=== PATIENT | female | born 1945 | race Hispanic/Latino ===

== ENCOUNTER 2017-08-23 06:35 | Day surgery (SDC) | payer MEDICARE, OTHER ==
[~2017-08-23 06:35] MED LIST: ANCEF/STERILE WATER 2 GM/20 ML 2 GM/20 ML SYRINGE IV NR; NACL 0.9% 1000 ML 1,000 ML IV SCH
[2017-08-23] MEDS ORDERED: NACL 0.9% 500 ML 500 ML IV SCH (07:00)
[2017-08-23 07:28] LABS: Hemoglobin 15.1 gm/dl (10.1-14.3); Mean Corpuscular HGB Conc 34 % (30-34); Mean Corpuscular Hemoglobin 30 pg (28-32); Mean Corpuscular Volume 89 fl (79-97); Platelet Count 169 K/mm3 (140-440); Red Blood Count 5.04 M/mm3 (3.65-5.03); Red Cell Distribution Width 13.5 % (13.2-15.2)
[2017-08-23 07:41] LABS: INR 0.96 (0.87-1.13); Partial Thromboplastin Time 29.6 Sec. (24.2-36.6)
[2017-08-23 07:45] LABS: BUN/Creatinine Ratio 18; Blood Urea Nitrogen 14 mg/dL (7-17); Calcium 9.5 mg/dL (8.4-10.2); Hemolysis Index 27
[2017-08-23] MEDS ORDERED: HEPARIN 10,000 UNITS/10 ML ONE (08:27)
[2017-08-23] MEDS ORDERED: HEPARIN/NS 5000 UNIT/500ML(CATH LAB) 1,500 ML IR ONE (08:27)
[2017-08-23] MEDS ORDERED: XYLOCAINE 2% INFILTRATI ONE (08:30)
[2017-08-23] MEDS ORDERED: ANCEF/STERILE WATER 2 GM/20 ML 2 GM/20 ML SYRINGE IV ONE (08:42)
[2017-08-23] MEDS ORDERED: CALAN ONE (09:45)
[2017-08-23] MEDS ORDERED: NITROGLYCERIN SYRINGE 3 ML ONE (09:45)
[2017-08-23] MEDS: VERSED ONE ×4 (10:00→10:40)
[2017-08-23] MEDS: SUBLIMAZE ONE ×4 (10:01→10:40)
[2017-08-23] MEDS: HEPARIN 10,000 UNITS/10 ML ONE ×3 (10:10→10:51)
[2017-08-23] MEDS ORDERED: SUBLIMAZE ONE (11:05)
[2017-08-23] MEDS ORDERED: VERSED ONE (11:05)
[2017-08-23] MEDS ORDERED: NACL 0.9% 500 ML 500 ML ONE (11:15)
--- NOTE | 2017-08-23 11:49 | Post Operative Note ---
Pre-op diagnosis: PVD with claudication, in-stent restenosis right femoropopliteal artery Post-op diagnosis: same Findings: Long segment of in-stent restenosis with subtotal occlusion of the entire femoral-popliteal stented segment and the popliteal segment below the stent excessively treated with directional atherectomy and angioplasty followed by drug coated balloon angioplasty with complete resolution of preoperative stenosis and dramatic improvement of blood flow to the right foot Procedure: Right femoral-popliteal artery atherectomy with angioplasty using drug coated balloon #2 duplex guided cannulation right posterior tibial artery Anesthesia: other (moderate sedation: Start time: 1001- end time: 11:30 total sedation time 89 minutes) Surgeon: DARRYN BARRERA Estimated blood loss: minimal Pathology: list (atheroma and neointimal hyperplasia collected by the atherectomy device) Specimen disposition: discarded Condition: stable Disposition: same day
--- NOTE | 2017-08-23 11:56 | Short Stay Summary ---
Short Stay Documentation Date of service: 08/23/17 Narrative H&P: Admitted to the [facility] for outpatient revascularization of her right leg - History H&P: obtained from office - Allergies and Medications Current Medications: Allergies No Known Allergies Allergy (Verified 08/23/17 06:55) Home Medications Medication Instructions Recorded Confirmed Last Taken Type Apixaban [Eliquis] 5 mg PO BID 08/23/17 08/23/17 08/20/17 History 5mg Ipratropium/Albuterol Sulfate 1 - 2 puff INHALATION PRN PRN 08/23/17 08/23/17 History [Combivent Respimat] Metoprolol [Lopressor TAB] 50 mg PO BID 08/23/17 08/23/17 08/23/17 04:30 History 50mg Multi-Day Plus Minerals Tablet 1 tab PO DAILY 08/23/17 08/23/17 08/22/17 History 1 tab Pitavastatin Calcium [LiVALO] 4 mg PO DAILY 08/23/17 08/23/17 08/22/17 History 4mg Potassium Bicarbonate/Cit AC 10 meq PO DAILY 08/23/17 08/23/17 08/22/17 History [Effer-K 10 mEq] 10meq amLODIPine [Norvasc] 5 mg PO DAILY 08/23/17 08/23/17 08/23/17 04:30 History 5mg Active Medications Cefazolin Sodium (Ancef/Sterile Water 2 Gm/20 Ml) 2 gm in 20 mls @ 80 mls/hr IV PREOP NR; Protocol Stop: 08/23/17 23:59 Sodium Chloride (Nacl 0.9% 500 Ml) 500 mls @ 50 mls/hr IV DIRECT CASANDRA Last Admin: 08/23/17 08:25 Dose: 50 mls/hr - Brief post op/procedure progress note Date of procedure: 08/23/17 Procedure: Pre-op diagnosis: PVD with claudication, in-stent restenosis right femoropopliteal artery Post-op diagnosis: same Findings: Long segment of in-stent restenosis with subtotal occlusion of the entire femoral-popliteal stented segment and the popliteal segment below the stent excessively treated with directional atherectomy and angioplasty followed by drug coated balloon angioplasty with complete resolution of preoperative stenosis and dramatic improvement of blood flow to the right foot Procedure: Right femoral-popliteal artery atherectomy with angioplasty using drug coated balloon #2 duplex guided cannulation right posterior tibial artery Anesthesia: other (moderate sedation: Start time: 1001- end time: 11:30 total sedation time 89 minutes) Surgeon: DARRYN BARRERA Estimated blood loss: minimal Pathology: list (atheroma and neointimal hyperplasia collected by the atherectomy device) Specimen disposition: discarded Condition: stable Disposition: same day - Hospital course Hospital course: Benign with return of palpable pulses in the right foot - Disposition Condition at discharge: Stable Disposition: [id number] TO HOME OR SELFCARE - Discharge Diagnoses (1) Atherosclerotic PVD with intermittent claudication Status: Chronic Comment: Successfully treated with revascularization atherectomy and angioplasty (2) Stenosis involving cardiovascular device Status: Chronic Qualifiers: CV device type detail: peripheral vascular stent Encounter type: subsequent encounter Qualified Code(s): T82.856D - Stenosis of peripheral vascular stent, subsequent encounter (3) Atrial fibrillation and flutter Status: Chronic Comment: Resume Effient and appropriate anticoagulation per cardiology this evening (4) Hypertension Status: Chronic Qualifiers: Hypertension type: essential hypertension Qualified Code(s): I10 - Essential (primary) hypertension (5) Hyperlipemia Status: Chronic Qualifiers: Hyperlipidemia type: unspecified Qualified Code(s): E78.5 - Hyperlipidemia , unspecified Comment: Continue statins Short Stay Discharge Plan Activity: advance as tolerated Weight Bearing Status: Full Weight Bearing Diet: low fat, low cholesterol Wound: keep clean and dry Special Instructions: no heavy lifting Follow up with: MARCY WADE MD [Primary Care Provider] - 7 Days DARRYN BARRERA MD [Staff Physician] - 7 Days JULIA TIMMONS MD [Staff Physician] - 7 Days Prescriptions: HYDROcodone/APAP 5-325 [Pet[place] 5/325] 1 each PO Q4HR PRN #10 tablet PRN Reason: Pain
--- NOTE | 2017-08-23 12:25 | Operative Report ---
Operative Report Operative Report: Date of procedure: 08/23/2017 Pre-operative diagnosis: Peripheral vascular disease with claudication due to in stent restenosis right femoropopliteal artery Post-operative diagnosis: Same Procedure name(s): #1 right femoral popliteal artery atherectomy with balloon angioplasty and treatment with drug coated balloon #2 duplex guided cannulation right posterior tibial artery Surgeon: Marco Tapia MD Pharmacy Coordinator: None Anesthesia: Moderate sedation total sedation time 89 minutes. Start time: 1001 End time: 1130 EBL: Minimal Specimen(s): Plaque and neointimal hyperplasia collected via atherectomy device , discarded Complications: None Findings: Severe long segment preocclusive stenosis of the entire stented segment of the femoral-popliteal artery. An additional area of the above-knee popliteal artery also involved with occlusive disease successfully crossed from a retrograde approach and treated with resolution of the stenosis and improved blood flow to her foot Procedure: Patient in the supine position the right leg in its entirety and both groins were prepped and draped using standard sterile technique. I chose a posterior tibial access site because of the presence of an aortobifemoral bypass graft and my reluctance to the contralateral groin to the infectious risk. A previous angiogram had suggested the cannulation of the proximal stent would be very difficult from this approach. I then identified the posterior tibial artery at the ankle using the ultrasound machine and under real-time imaging and through anesthetized skin and micropuncture technique was used to access that vessel and advance a microwire. A 5/6 [employer] glide sheath was then advanced over the wire into the posterior tibial artery using Seldinger technique. Intraluminal positioning was confirmed. IV 18 wire was then passed retrograde up the leg and easily traversed the entire stent into the aortobifemoral graft. An 018 quick cross was then placed. Contrast was injected confirming intraluminal position and the previously known stenotic lesions. Patient was heparinized and she was also given moderate sedation from the beginning of the procedure. The 18 wire was replaced with the A[employer]on core wire and a [employer] directional atherectomy device was advanced through the distal endpoint of the stent. The gaining distally and progressing proximally the stent underwent standard atherectomy using four passes per segment containing the entire stent in approximately 3 segments. Each segment was cleaned separately from the more proximal and the atheromatous debris was removed. I then posted the entire stent with a 5 x 120 balloon. This was followed up by treating the proximal and mid segments with 6 x 150 IN.PACT Admiral balloon was followed by a 5 x 120 IN.PACT Admiral balloon in the most distal segment and into the [place] popliteal artery above the knee. The flatter area was treated because after the atherectomy there was sluggish flow suggesting lap was completely eliminated after the above-mentioned segments were treated with temple of brisk flow into the calf. Further evaluation of the more distal vessels showed three-vessel runoff to the level of the ankle. The posterior tibial artery was occluded by the sheath which was anticipated. At this point I eliminated all the preoperative stenotic lesions in dramatically improved the blood flow to her right foot. Catheters and the sheath was removed and counter pressure was held until hemostatic. Pressure bandage was applied the patient was removed to the recovery area in stable condition with excellent revascularization in the foot.
[2017-08-23 13:49] VITALS: BP 123/51
== END 2017-08-23 14:45 | disposition home or self-care (01) ==
LOC: CATHLABREC 06:35
PROVIDERS: ATTEND Surgery Vascular Surgery
DX: T82.856A Stenosis of peripheral vascular stent, initial encounter (principal); I70.213 Atherosclerosis of native arteries of extremities with intermittent claudication, bilateral legs; I25.2 Old myocardial infarction; I48.2 Chronic atrial fibrillation; I10 Essential (primary) hypertension; E78.00 Pure hypercholesterolemia, unspecified; F17.210 Nicotine dependence, cigarettes, uncomplicated; Y83.1 Surgical operation with implant of artificial internal device as the cause of abnormal reaction of the patient, or of later complication, without mention of misadventure at the time of the procedure; Z90.710 Acquired absence of both cervix and uterus; Z95.5 Presence of coronary angioplasty implant and graft
CPT/HCPCS: 36415; 37225; 76937; 80048; 85027; 85610; 85730; 99156; 99157; C1714; C1725; C1769; C1894; C2623; J0690; J1644; J2250; J3010; J7040; Q9967

== ENCOUNTER 2018-05-22 10:35 | Inpatient (IN) | payer MEDICARE, OTHER ==
[2018-05-22] MEDS ORDERED: SUBLIMAZE IV ONE (11:12)
[2018-05-22] MEDS ORDERED: NACL 0.9% 500 ML 500 ML IV ONE (11:13)
--- NOTE | 2018-05-22 11:19 | Emergency Department Report ---
ED General Adult HPI - General Chief complaint: Extremity Problem,Nontraumatic Stated complaint: RT LEG PAIN Time Seen by Provider: 05/22/18 11:05 Source: patient, RN notes reviewed, old records reviewed Mode of arrival: Ambulatory Limitations: No Limitations - History of Present Illness Initial comments: Vascular surgery: Dr. Marco Tapia Primary care DrLeslie: Spenser mccabe Cardiology: [facility]; Dr. Mims Past medical history: Paroxysmal atrial fibrillation, currently on systemic anticoagulation; eliwuis, hypertension, peripheral artery disease This is a 72-year-old female who is not known to this provider previously. The patient reports that she was at her outpatient vascular surgeon's office, had a lower extremity Doppler study, and was sent to the emergency room for further evaluation. Patient reports resting and exertional pain in her right foot, and right calf over the past 2 weeks. She reports that the lower extremity is cool and she feels like her peripheral artery disease is acting up. Symptoms are intermittent, worse with physical exertion, decreased with rest. Denies other injuries, denies other complaints. -: week(s) Location: right, lower extremity Radiation: non-radiation Quality: burning, stabbing, aching Consistency: intermittent Improves with: rest Worsens with: movement - Related Data Home Medications Medication Instructions Recorded Confirmed Last Taken Apixaban [Eliquis] 5 mg PO BID 08/23/17 05/22/18 05/22/18 Pitavastatin Calcium [LiVALO] 4 mg PO DAILY 08/23/17 05/22/18 05/22/18 Potassium Bicarbonate/Cit AC 10 meq PO QDAY 11/02/17 05/22/18 11/08/17 [Effer-K 10 mEq] Digoxin [Lanoxin] 0.125 mg PO DAILY 05/22/18 05/22/18 05/22/18 Metoprolol [Lopressor TAB] 50 mg PO BID 05/22/18 05/22/18 05/22/18 NIFEdipine [Nifedipine ER] 30 mg PO QDAY 05/22/18 05/22/18 05/22/18 Allergies Allergy/AdvReac Type Severity Reaction Status Date / Time silk tape Allergy Blisters Uncoded 11/01/17 14:50 ED Review of Systems ROS: Stated complaint: RT LEG PAIN Other details as noted in HPI Constitutional: denies: fever Eyes: denies: vision change ENT: denies: epistaxis Respiratory: denies: cough Cardiovascular: denies: chest pain Gastrointestinal: denies: abdominal pain, nausea, vomiting, hematemesis, melena, hematochezia Genitourinary: denies: dysuria Musculoskeletal: arthralgia, myalgia Skin: denies: lesions Neurological: denies: weakness Psychiatric: denies: anxiety ED Past Medical Hx - Past Medical History Previous Medical History?: Yes Hx Hypertension: Yes Hx Liver Disease: No Hx Renal Disease: No Hx Headaches / Migraines: Yes (Past hx migraines) Hx Seizures: No Hx Asthma: No Hx COPD: No - Surgical History Past Surgical History?: Yes Hx Coronary Stent: Yes Hx Appendectomy: Yes - Social History Smoking Status: Never Smoker - Medications Home Medications: Home Medications Medication Instructions Recorded Confirmed Last Taken Type Apixaban [Eliquis] 5 mg PO BID 08/23/17 05/22/18 05/22/18 History Pitavastatin Calcium [LiVALO] 4 mg PO DAILY 08/23/17 05/22/18 05/22/18 History Potassium Bicarbonate/Cit AC 10 meq PO QDAY 11/02/17 05/22/18 11/08/17 History [Effer-K 10 mEq] Digoxin [Lanoxin] 0.125 mg PO DAILY 05/22/18 05/22/18 05/22/18 History Metoprolol [Lopressor TAB] 50 mg PO BID 05/22/18 05/22/18 05/22/18 History NIFEdipine [Nifedipine ER] 30 mg PO QDAY 05/22/18 05/22/18 05/22/18 History ED Physical Exam - General Limitations: No Limitations General appearance: alert, in no apparent distress - Head Head exam: Present: atraumatic, normocephalic - Eye Eye exam: Present: normal appearance, EOMI. Absent: nystagmus - ENT ENT exam: Present: normal exam, normal orophraynx, mucous membranes moist, normal external ear exam - Neck Neck exam: Present: normal inspection, full ROM. Absent: tenderness, meningismus - Respiratory Respiratory exam: Present: normal lung sounds bilaterally. Absent: respiratory distress - Cardiovascular Cardiovascular Exam: Present: regular rate, normal rhythm, normal heart sounds. Absent: bradycardia, tachycardia, irregular rhythm, systolic murmur, diastolic murmur, rubs, gallop - GI/Abdominal GI/Abdominal exam: Present: soft. Absent: distended, tenderness, guarding, rebound, rigid, pulsatile mass - Extremities Exam Extremities exam: Present: normal inspection, full ROM, calf tenderness (there is right calf tenderness), other (1+ pulses noted in the bilateral upper extremities. 1+ pulses noted in the left femoral region, left dorsalis pedis region. There is a 1+ pulses noted in the right femoral region. Pulses absent in the right dorsalis pedis, right posterior tibial distribution. The left foot is cool to touch. There is mild pain with passive range of motion of the toes on the right foot.). Absent: pedal edema - Back Exam Back exam: Present: normal inspection, full ROM. Absent: tenderness, CVA tenderness (R), paraspinal tenderness, vertebral tenderness - Neurological Exam Neurological exam: Present: alert, CN II-XII intact, other (Extraocular movements intact. Tongue midline. No facial droop. Facial sensation intact to light touch in the V1, V2, V3 distribution bilaterally. 5 and 5 strength in 4 extremities.. Sensation is intact to light touch in 4 extremities.). Absent: motor sensory deficit - Psychiatric Psychiatric exam: Present: normal affect, normal mood - Skin Skin exam: Present: warm, dry, intact, normal color. Absent: rash ED Course Vital Signs 05/22/18 05/22/18 12:06 12:07 Temperature 97.6 F Pulse Rate 63 Respiratory 17 16 Rate Blood Pressure 145/69 O2 Sat by Pulse 98 Oximetry - Reevaluation(s) Reevaluation #1: 05/22/18 11:18 Differential diagnosis, including not limited to: Peripheral artery disease, rest claudication, Assessment and plan: 72-year-old female with known history of peripheral artery disease, currently on systemic anticoagulation, with likely worsening of her underlying peripheral artery disease, 2 weeks. She will remain nothing by mouth, she will be given pain medication, we will obtain appropriate screening laboratory studies, obtain right lower extremity arterial study, and discussed with her vascular surgeon. Reevaluation #2: 05/22/18 11:34 Received callback from vascular surgery physician infertility medical assistant, Mr. Que Rainey. He advises the patient had a duplex study in the office, which confirmed a thrombosed lower extremity graft. He recommends heparin drip, without bolus, and his group will evaluate the patient shortly. Presented case to Hospital physician, Dr. Gandhi, who will admit the patient to the medical service. Discussed this plan of care with the patient and family, who verbalize understanding, and are amenable to hospitalization. I will cancel the arterial duplex study ordered, as well as vascular surgery has indicated on the phone that they do not require one at this time. ED Medical Decision Making - Lab Data Result diagrams: 05/22/18 11:32 05/22/18 11:32 Vital Signs 05/22/18 05/22/18 12:06 12:07 Temperature 97.6 F Pulse Rate 63 Respiratory 17 16 Rate Blood Pressure 145/69 O2 Sat by Pulse 98 Oximetry Lab Results 05/22/18 05/22/18 05/22/18 Range/Units 11:32 11:32 11:32 WBC 7.1 (4.5-11.0) K/mm3 RBC 4.92 (3.65-5.03) M/mm3 Hgb 14.7 H (10.1-14.3) gm/dl Hct 43.5 H (30.3-42.9) % MCV 89 (79-97) fl MCH 30 (28-32) pg MCHC 34 (30-34) % RDW 17.6 H (13.2-15.2) % Plt Count 175 (140-440) K/mm3 PT 18.1 H (12.2-14.9) Sec. INR 1.40 H (0.87-1.13) APTT 30.1 (24.2-36.6) Sec. Sodium 138 (137-145) mmol/L Potassium 4.1 (3.6-5.0) mmol/L Chloride 100.2 (98-107) mmol/L Carbon Dioxide 26 (22-30) mmol/L Anion Gap 16 mmol/L BUN 16 (7-17) mg/dL Creatinine 0.9 (0.7-1.2) mg/dL Estimated GFR > 60 ml/min BUN/Creatinine Ratio 18 % Glucose 98 (65-100) mg/dL Calcium 9.0 (8.4-10.2) mg/dL Magnesium 2.10 (1.7-2.3) mg/dL Total Bilirubin 0.50 (0.1-1.2) mg/dL AST 20 (5-40) units/L ALT 15 (7-56) units/L Alkaline Phosphatase 67 (35-129) units/L Total Creatine Kinase 127 (30-135) units/L Total Protein 6.8 (6.3-8.2) g/dL Albumin 4.1 (3.9-5) g/dL Albumin/Globulin Ratio 1.5 % Digoxin (0.9-2.0) ng/mL Blood Type Antibody Screen 05/22/18 05/22/18 Range/Units 11:32 11:32 WBC (4.5-11.0) K/mm3 RBC (3.65-5.03) M/mm3 Hgb (10.1-14.3) gm/dl Hct (30.3-42.9) % MCV (79-97) fl MCH (28-32) pg MCHC (30-34) % RDW (13.2-15.2) % Plt Count (140-440) K/mm3 PT (12.2-14.9) Sec. INR (0.87-1.13) APTT (24.2-36.6) Sec. Sodium (137-145) mmol/L Potassium (3.6-5.0) mmol/L Chloride (98-107) mmol/L Carbon Dioxide (22-30) mmol/L Anion Gap mmol/L BUN (7-17) mg/dL Creatinine (0.7-1.2) mg/dL Estimated GFR ml/min BUN/Creatinine Ratio % Glucose (65-100) mg/dL Calcium (8.4-10.2) mg/dL Magnesium (1.7-2.3) mg/dL Total Bilirubin (0.1-1.2) mg/dL AST (5-40) units/L ALT (7-56) units/L Alkaline Phosphatase (35-129) units/L Total Creatine Kinase (30-135) units/L Total Protein (6.3-8.2) g/dL Albumin (3.9-5) g/dL Albumin/Globulin Ratio % Digoxin 1.4 (0.9-2.0) ng/mL Blood Type O POSITIVE Antibody Screen Positive Critical Care Time: Yes Critical care time in (mins) excluding proc time.: 35 Critical care attestation.: If time is entered above; I have spent that time in minutes in the direct care of this critically ill patient, excluding procedure time. ED Disposition Clinical Impression: Atherosclerotic PVD with intermittent claudication Disposition: OP ADMIT IP TO THIS HOSP Is pt being admited?: Yes Condition: Good
[2018-05-22 11:47] LABS: Hematocrit 43.5 % (30.3-42.9); Hemoglobin 14.7 gm/dl (10.1-14.3); Mean Corpuscular HGB Conc 34 % (30-34); Mean Corpuscular Volume 89 fl (79-97); Platelet Count 175 K/mm3 (140-440); Red Blood Count 4.92 M/mm3 (3.65-5.03); Red Cell Distribution Width 17.6 % (13.2-15.2)
--- NOTE | 2018-05-22 11:49 | History and Physical Report ---
History of Present Illness Chief complaint: My leg hurts,and my doctor told me to come in History of present illness: 72 YO Female with Atrial Fib on Therapeutic Anticoagulation (Eliquis), HTN, CAD S/P Stent Placement, PAD, Migraine Headache presents to ED for evaluation. Pt states that she has experienced pain and lower leg feeling cold to the tough in her right lower leg over the past 2 weeks, with progressively worsening symptoms over the past 5 days. Pt presented to her vascular surgeons office and underwent a doppler exam and was found to have lower limb ischemia suspected due to an occlusion. Pt instructed to seek further care at [facility]. Pt seen and evaluated in ED and found to have clinical findings consistent with RLE arterial obstruction. Pt initiated on Heparin drip. Vascular surgery consulted in ED. Angiogram held as per vascular surgery request. Admission history reviewed. No prior inpatient admission. All listed medication reconciled at time of admission. Pt NPO at admission pending vascular surgery intervention. Pt acknowledges rest pain, as well as pain with ambulation. Pt denies fever, chills, CP, Palpitations, NVD, Trauma, BRBPR, skin rash, or recent ill contacts. Vascular surgery: Dr. Marco Tapia Primary Care Physician: [facility] [place] Cardiology: [facility] Past History Past Medical History: atrial fib, CAD, hypertension, migraines, PVD Past Surgical History: appendectomy Social history: single, lives with family Family history: hypertension Medications and Allergies Allergies Allergy/AdvReac Type Severity Reaction Status Date / Time silk tape Allergy Blisters Uncoded 11/01/17 14:50 Home Medications Medication Instructions Recorded Confirmed Last Taken Type Apixaban [Eliquis] 5 mg PO BID 08/23/17 05/22/18 05/22/18 History Pitavastatin Calcium [LiVALO] 4 mg PO DAILY 08/23/17 05/22/18 05/22/18 History Potassium Bicarbonate/Cit AC 10 meq PO QDAY 11/02/17 05/22/18 11/08/17 History [Effer-K 10 mEq] Digoxin [Lanoxin] 0.125 mg PO DAILY 05/22/18 05/22/18 05/22/18 History Metoprolol [Lopressor TAB] 50 mg PO BID 05/22/18 05/22/18 05/22/18 History NIFEdipine [Nifedipine ER] 30 mg PO QDAY 05/22/18 05/22/18 05/22/18 History Active Meds: Active Medications Heparin Sodium/Sodium Chloride (Heparin/ 0.45% Nacl-25,000 Unit/500 Ml) 25,000 unit in 500 mls @ 0 mls/hr IV TITR CASANDRA; Protocol Review of Systems Constitutional: no weight loss, no weight gain, no fever, no chills Ears, nose, mouth and throat: no ear pain, no ear discharge, no tinnitis, no decreased hearing, no nose pain Breasts: no change in shape, no swelling, no mass Cardiovascular: no chest pain, no orthopnea, no palpitations, no rapid/irregular heart beat, no edema Respiratory: no cough, no cough with sputum, no excessive sputum, no shortness of breath Gastrointestinal: no nausea, no vomiting Genitourinary Female: no pelvic pain, no flank pain, no menorrhagia, no dysuria, no urinary frequency, no urgency Rectal: no pain, no incontinence, no bleeding Musculoskeletal: other (RLE pain), no neck stiffness, no neck pain, no shooting arm pain, no low back pain Integumentary: no rash, no pruritis, no redness, no sores Neurological: no paralysis, no weakness, no parathesias, no numbness, no tingling Psychiatric: no anxiety, no memory loss, no change in sleep habits, no sleep disturbances, no insomnia, no hypersomnia, no change in appetite, no change in libido Endocrine: no cold intolerance, no heat intolerance, no polyphagia, no excessive thirst, no polyuria, no nocturia Hematologic/Lymphatic: no easy bruising, no easy bleeding, no lymphadenopathy Allergic/Immunologic: no urticaria, no allergic rhinitis, no wheezing, no persistent infections, no angioedema Exam - Constitutional General appearance: Present: mild distress - EENT Eyes: Present: PERRL ENT: hearing intact, clear oral mucosa - Neck Neck: Present: supple, normal ROM - Respiratory Respiratory effort: normal Respiratory: bilateral: CTA - Cardiovascular Heart Sounds: Present: S1 & S2. Absent: rub, click - Extremities Extremities: abnormal Extremity abnormal: cold, pulses diminished Peripheral Pulses: abnormal (1+, RLE) - Abdominal General gastrointestinal: Present: soft, non-tender, non-distended, normal bowel sounds Female genitourinary: Present: normal - Integumentary Integumentary: Present: clear, warm, dry - Musculoskeletal Musculoskeletal: gait normal, strength equal bilaterally - Psychiatric Psychiatric: appropriate mood/affect, intact judgment & insight - Neurologic Neurologic: CNII-XII intact, moves all extremities Results - Labs CBC & Chem 7: 05/22/18 11:32 05/22/18 11:32 Labs: Abnormal lab results 05/22/18 Range/Units 11:32 Hgb 14.7 H (10.1-14.3) gm/dl Hct 43.5 H (30.3-42.9) % RDW 17.6 H (13.2-15.2) % Assessment and Plan - Patient Problems (1) Atherosclerotic PVD with intermittent claudication Current Visit: Yes Status: Chronic Plan to address problem: Vascular surgery consulted, Doppler study completed in Vascular surgeons office, Adan scott, Heparin drip initiated in ED. (2) HLD (hyperlipidemia) Current Visit: Yes Status: Acute Qualifiers: Hyperlipidemia type: mixed hyperlipidemia Qualified Code(s): E78.2 - Mixed hyperlipidemia Plan to address problem: low cholesterol diet, statin therapy, (3) CAD in ak chin artery Current Visit: Yes Status: Acute Plan to address problem: Statin therapy, risk factor reduction, NO angina at time of admission. Admit to telemetry (4) Atrial fibrillation and flutter Current Visit: No Status: Chronic Plan to address problem: Continue rate control with metoprolol, and digoxin therpay, telemetry monitoring, (5) Hypertension Current Visit: No Status: Chronic Qualifiers: Hypertension type: essential hypertension Qualified Code(s): I10 - Essential (primary) hypertension Plan to address problem: Monitor BP q shift, continue Beta sheryl and calcium channel sheryl therapy, monitor BP q shift, (6) DVT prophylaxis Current Visit: Yes Status: Acute Plan to address problem: Therapeutic anticoagulation,
[2018-05-22 11:59] LABS: Alanine Aminotransferase 15 units/L (7-56); Albumin 4.1 g/dL (3.9-5); BUN/Creatinine Ratio 18; Blood Urea Nitrogen 16 mg/dL (7-17); Hemolysis Index 8
[2018-05-22] MEDS ORDERED: PROVENTIL IH PRN (12:03)
[2018-05-22] MEDS ORDERED: SODIUM CHLORIDE FLUSH SYRINGE 10 ML IV PRN (12:03)
[2018-05-22] MEDS ORDERED: TYLENOL PO PRN (12:03)
[2018-05-22] MEDS ORDERED: ZOFRAN IV PRN (12:03)
[2018-05-22 12:04] LABS: INR 1.4 (0.87-1.13)
[2018-05-22 12:05] LABS: Partial Thromboplastin Time 30.1 Sec. (24.2-36.6)
[2018-05-22] MEDS ORDERED: MORPHINE IV PRN (14:04)
--- NOTE | 2018-05-22 17:30 | Consultation ---
History of Present Illness - Reason for Consult Consult date: 05/22/18 Ischemic RLE Requesting physician: GABO SCHNEIDER - History of Present Illness This pt is a 72 yo WF with known PVD. She is s/p an aorta-bifem in ~2007. She developed RLE ulceration and was admitted for a fem-distal bypass 11/09/17. Post- operatively while in the recovery room she developed a right groin hematoma, and she was taken back to the OR. A right groin hematoma was evacutated, and a flouroscopic assisted thromboembolectomy performed. Post-operatively she continued to have discomfort. This was worse ~2wks ago, and much worse over the last few days. She was evaluated in the office earlier today. Duplex suggested her bypass was thrombosed. Her leg appeared ischemic, and she is currently in rest pain. The Hospitalist was contacted, and they have admitted the pt. The pt was anticoagulated as an outpt due to A-fib. She denies missing doses. A heparin drip has been ordered. She states the pain improved and her foot is warmer following after getting a dose of IV medication in the ER (?heparin). Past History Past Medical History: atrial fib, CAD, hypertension, hyperlipidemia, migraines, PVD, stroke, other (genetic optic nerve atrophy (blindness)) Past Surgical History: appendectomy, hysterectomy, PTCA (Aorta Bifem, LLE fem- pop 1992, LLE agram with intervention, the above stated right fem-tib bypass with post-op evac of hematoma and open thrombectomy of fem distal), Other Social history: single, , lives with family, smoking Family history: CAD, diabetes, hypertension Medications and Allergies Allergies Allergy/AdvReac Type Severity Reaction Status Date / Time silk tape Allergy Blisters Uncoded 11/01/17 14:50 Home Medications Medication Instructions Recorded Confirmed Last Taken Type Apixaban [Eliquis] 5 mg PO BID 08/23/17 05/22/18 05/22/18 History Pitavastatin Calcium [LiVALO] 4 mg PO DAILY 08/23/17 05/22/18 05/22/18 History Potassium Bicarbonate/Cit AC 10 meq PO QDAY 11/02/17 05/22/18 11/08/17 History [Effer-K 10 mEq] Digoxin [Lanoxin] 0.125 mg PO DAILY 05/22/18 05/22/18 05/22/18 History Metoprolol [Lopressor TAB] 50 mg PO BID 05/22/18 05/22/18 05/22/18 History NIFEdipine [Nifedipine ER] 30 mg PO QDAY 05/22/18 05/22/18 05/22/18 History Active Meds: Active Medications Acetaminophen (Tylenol) 650 mg PO Q4H PRN PRN Reason: Pain MILD(1-3)/Fever >100.5/HARDING Acetaminophen/Hydrocodone Bitart ([place] 5/325) 2 each PO Q6H PRN PRN Reason: Pain, Moderate (4-6) Albuterol (Proventil) 2.5 mg IH Q4HRT PRN PRN Reason: Shortness Of Breath Digoxin (Lanoxin) 0.125 mg PO DAILY [facility] Heparin Sodium/Sodium Chloride (Heparin/ 0.45% Nacl-25,000 Unit/500 Ml) 25,000 unit in 500 mls @ 16 mls/hr IV TITR CASANDRA; Protocol Metoprolol Tartrate (Lopressor) 50 mg PO BID [facility] Miscellaneous Medication (Potassium Bicarbonate/Cit Ac [Effer-K 10 Meq]) 10 meq PO QDAY [facility] Morphine Sulfate (Morphine) 2 mg IV Q3H PRN PRN Reason: Pain, Moderate (4-6) Morphine Sulfate (Morphine) 4 mg IV Q3H PRN PRN Reason: Pain , Severe (7-10) Nifedipine (Procardia Xl) 30 mg PO QDAY [facility] Ondansetron HCl (Zofran) 4 mg IV Q8H PRN PRN Reason: Nausea And Vomiting Pravastatin Sodium (Pravachol) 80 mg PO QHS [facility] Sodium Chloride (Sodium Chloride Flush Syringe 10 Ml) 10 ml IV BID [facility] Sodium Chloride (Sodium Chloride Flush Syringe 10 Ml) 10 ml IV PRN PRN PRN Reason: LINE FLUSH Review of Systems All systems: negative Exam - Constitutional Vitals: Temp Pulse Resp BP Pulse Ox 98 F 62 18 132/47 95 05/22/18 16:00 05/22/18 16:00 05/22/18 16:00 05/22/18 16:00 05/22/18 16:00 General appearance: Present: no acute distress - EENT Eyes: Present: EOM intact (pre-existing decreased visual acuity) ENT: hearing intact - Neck Neck: Present: normal ROM - Respiratory Respiratory effort: normal - Extremities Extremity abnormal: pulses diminished (non-palpable right sided lower ext pulses including the femoral and all pulses distal. Easily palpable left fem pulse.), other (RLE cool, with rubor and 5th toe cyanosis, dry fissure of the 5th toe over lateral metatarsal head. No erythema.) - Psychiatric Psychiatric: appropriate mood/affect, intact judgment & insight, cooperative - Neurologic Neurologic: moves all extremities (moves toes on the right foot.) Results - Labs CBC & Chem 7: 05/22/18 11:32 05/22/18 11:32 Labs: Abnormal lab results 05/22/18 05/22/18 05/22/18 Range/Units 11:32 11:32 11:32 Hgb 14.7 H (10.1-14.3) gm/dl Hct 43.5 H (30.3-42.9) % RDW 17.6 H (13.2-15.2) % PT 18.1 H (12.2-14.9) Sec. INR 1.40 H (0.87-1.13) Heparin Anti-Xa Level (0.3-0.7) U.I./ml Crossmatch See Detail 05/22/18 Range/Units 16:05 Hgb (10.1-14.3) gm/dl Hct (30.3-42.9) % RDW (13.2-15.2) % PT (12.2-14.9) Sec. INR (0.87-1.13) Heparin Anti-Xa Level > 2.00 H (0.3-0.7) U.I./ml Crossmatch Assessment and Plan Pt presents with an ischemic RLE. This despite outpt anticoagulation with eliquis. Standard Heparin drip has been ordered. Pain control with analgesics. Will check CTA of the abd with bilateral lower ext runoff. Further recommendation based upon these results. - Patient Problems (1) Ischemia of right lower extremity Current Visit: Yes Status: Acute (2) CAD (coronary artery disease) Current Visit: Yes Status: Acute (3) HLD (hyperlipidemia) Current Visit: Yes Status: Acute Qualifiers: Hyperlipidemia type: mixed hyperlipidemia Qualified Code(s): E78.2 - Mixed hyperlipidemia (4) Atrial fibrillation and flutter Current Visit: No Status: Chronic (5) Hyperlipemia Current Visit: No Status: Chronic Qualifiers: Hyperlipidemia type: unspecified Qualified Code(s): E78.5 - Hyperlipidemia, unspecified (6) Hypertension Current Visit: No Status: Chronic Qualifiers: Hypertension type: essential hypertension Qualified Code(s): I10 - Essential (primary) hypertension
[2018-05-22] MEDS: HEPARIN/ 0.45% NACL-25,000 UNIT/500 ML 25,000 UNIT/500 ML BAG IV SCH (19:00)
--- NOTE | 2018-05-22 21:11 | Cat Scan Report ---
EXAM: CT ANGIO ABD/FEMORAL ABD AORTA HISTORY: ischemic RLE TECHNIQUE: Spiral axial CT images are obtained through the distal abdomen, pelvis and bilateral lower extremities with the administration of 100 cc of Omnipaque 350 intravenous contrast. Three-dimension al coronal, sagittal, and oblique images are reformatted. COMPARISON: None available. FINDINGS: CT ABDOMEN AND PELVIS: The liver, spleen, pancreas, gallbladder, adrenal glands, and IVC are within n ormal limits. There are multiple small bilateral renal cysts; largest in the right middle pole kidney measuring 1.5 cm. No evidence for renal stone disease or obstructive uropathy is seen. There is no f ree fluid, free air, herniation, mass lesion, or lymphadenopathy seen. No bony fracture deformities a re seen. Abundant fecal material is seen within the large bowel loops; nonspecific finding; rule out constipation. Diffuse colonic diverticulosis, especially severe in the sigmoid region, without CT barbara dence for acute diverticulitis. No evidence for bowel herniation, bowel obstruction, appendicitis or colitis. Status post hysterectomy. CTA ABDOMEN AND PELVIS: There is severe aortoiliac atherosclerotic disease marked by calcified mural plaques. There is atherosclerotic calcified mural plaque at the celiac axis and SMA origins with mild (less than 50%) luminal stenoses. There is atherosclerotic calcified mural plaque and the renal sukhdev ry origins, with potentially hemodynamically significant bilateral renal artery origin/proximal segme nt stenoses. No asymmetrical or delayed renal cortical parenchymal enhancement is noted. The JANICE is p atent. The patient is status post aortobifemoral bypass graft placement. The [place] distal aorta and right i liac arteries are thrombosed (a thrombosed right external iliac artery stent is noted). The [place] le ft proximal common iliac artery is thrombosed, but there is reconstitution of blood flow within the d istal left common iliac artery and left internal and external iliac arteries. The right iliac limb of the aortofemoral bypass graft is completely thrombosed throughout. The left limb of the aortofemoral bypass graft is widely patent. CTA LOWER EXTREMITIES: RIGHT: There is complete thrombosis of the right common femoral artery, superficial femoral artery, a nd proximal popliteal artery. The right profunda femoral artery is patent and represents the main blo od flow to the distal right lower extremity. There is reconstitution of the middle right popliteal ar rosario, likely secondary to geniculate collaterals. The right anterior tibial artery and peroneal arter y are patent throughout. The right posterior tibial artery is occluded in its proximal course and rec onstitutes distally just above the ankle, with contrast opacification of the plantar arteries noted. LEFT: The [place] left superficial femoral artery is occluded throughout its course. There is a widely patent left STRU[employer]TER-popliteal artery bypass graft. The left popliteal artery and trifurcation runoff ves sels are widely patent throughout. IMPRESSION: The [place] distal aorta and right iliac arteries are thrombosed (a thrombosed right external iliac ar rosario stent is noted). Status post aortobifemoral bypass graft placement. The right iliac limb of the aortofemoral bypass graft is completely thrombosed throughout. Complete thrombosis of the right common femoral artery, superficial femoral artery, and proximal popl iteal artery. The right profunda femoral artery is patent and represents the main blood flow to the distal right lo wer extremity. Reconstitution of the right middle popliteal artery, secondary to geniculate collaterals. The right anterior tibial artery and peroneal artery are patent throughout. The right posterior tibial artery is occluded in its proximal course and reconstitutes distally just above the ankle, with contrast opacification of the plantar arteries noted. The [place] left superficial femoral artery is occluded throughout its course. Widely patent left STRUCT[employer] STEEL FITTER-popliteal artery bypass graft, with adequate blood flow to the left popliteal artery and trifurcation runoff vessels. Atherosclerotic calcified mural plaque at the celiac axis and SMA origins with mild (less than 50%) l uminal stenoses. Atherosclerotic calcified mural plaque and the renal artery origins, with potentially hemodynamically significant bilateral renal artery origin/proximal segment stenoses. This document is electronically signed by Vin Johnson MD., May 22 2018 09:09:03 PM ET
[2018-05-22] MEDS: PRAVACHOL PO SCH (21:21)
[2018-05-22] MEDS: LOPRESSOR PO SCH (21:22)
[2018-05-22] MEDS: SODIUM CHLORIDE FLUSH SYRINGE 10 ML IV SCH (21:24)
[2018-05-22] MEDS: NORCO 5/325 PO PRN (23:27)
[2018-05-23 06:24] LABS: Basophils # (Auto) 0.1 K/mm3 (0.0-0.1); Basophils % (Auto) 1.3 % (0.0-1.8); Eosinophils # (Auto) 0.2 K/mm3 (0.0-0.4); Eosinophils % (Auto) 3.7 % (0.0-4.3); Hematocrit 43.8 % (30.3-42.9); Lymphocytes # (Auto) 1.9 K/mm3 (1.2-5.4); Lymphocytes % (Auto) 33.2 % (13.4-35.0); Mean Corpuscular HGB Conc 34 % (30-34); Mean Corpuscular Volume 88 fl (79-97); Monocytes # (Auto) 0.6 K/mm3 (0.0-0.8); Monocytes % (Auto) 9.5 % (0.0-7.3); Platelet Count 177 K/mm3 (140-440); Red Blood Count 4.99 M/mm3 (3.65-5.03); Red Cell Distribution Width 17.6 % (13.2-15.2)
[2018-05-23 06:39] LABS: BUN/Creatinine Ratio 17; Blood Urea Nitrogen 15 mg/dL (7-17); Calcium 8.7 mg/dL (8.4-10.2); Hemolysis Index 6
--- NOTE | 2018-05-23 09:37 | Anesthesia Consultation ---
Anesthesia Consult and Med Hx Date of service: 05/23/18 - Airway Anesthetic Teeth Evaluation: Poor, Edentulous ROM Head & Neck: Adequate Mental/Hyoid Distance: Adequate Mallampati Class: Class I Intubation Access Assessment: Good - Pulmonary Exam CTA: Yes - Cardiac Exam Cardiac Exam: RRR Anesthetic Concerns: H/O A-Fib, CAD, HTN, PVD. - Pre-Operative Health Status ASA Pre-Surgery Classification: ASA3 Proposed Anesthetic Plan: General - Pulmonary Hx Smoking: Yes (1/2 PPD x 40yrs) Hx Asthma: No Hx Respiratory Symptoms: No COPD: No - Cardiovascular System Hx Hypertension: Yes Hx Coronary Artery Disease: Yes Hx Angina: No Hx Percutaneous Transluminal Coronary Angioplasty (PTCA): Yes (stent to RCA 1997) Hx Cardia Arrhythmia: Yes (on eliquis; may be held 4 days before procedure per prototype technician) - Gastrointestinal Hx Gastroesophageal Reflux Disease: No - Endocrine Hx Renal Disease: No Hx Liver Disease: No - Other Systems Hx Alcohol Use: Yes (Occas) Hx Cancer: No Hx Obesity: No
[2018-05-23] MEDS ORDERED: PITAVASTATIN CALCIUM 4 MG PO SCH (10:00)
[2018-05-23] MEDS ORDERED: CIT AC PO SCH (10:00)
[2018-05-23] MEDS ORDERED: POTASSIUM BICARBONATE PO SCH (10:00)
[2018-05-23] MEDS: LOPRESSOR PO SCH ×2 (11:35→21:17)
[2018-05-23] MEDS: KLOR-CON PO SCH (11:35)
[2018-05-23] MEDS: PROCARDIA XL PO SCH (11:36)
[2018-05-23] MEDS: LANOXIN PO SCH (11:36)
[2018-05-23] MEDS: SODIUM CHLORIDE FLUSH SYRINGE 10 ML IV SCH ×2 (11:37→22:54)
[2018-05-23] MEDS: MORPHINE IV PRN (11:49)
[2018-05-23] MEDS ORDERED: ANCEF/STERILE WATER 2 GM/20 ML 2 GM/20 ML SYRINGE IV NR (12:00)
--- NOTE | 2018-05-23 12:03 | Progress Note ---
Assessment and Plan - Patient Problems (1) Acute occlusion of artery of lower extremity due to thrombosis Current Visit: Yes Status: Acute Plan to address problem: C narrative above. Patient is going to the operating room for emergent vascularization attempt. Subjective Date of service: 05/23/18 Principal diagnosis: acute arterial occlusion bypass graft with resting ischemia right leg Interval history: Patient underwent CT scan last night which showed not only was removed femoral to peroneal artery bypass graft occluded but the right iliac limb of her aortobifemoral was also occluded. She will need open thrombectomy of the right iliac limb and possible bypass to the tibial blood vessels for limb salvage. She has limited veins and therefore prosthetic will be required. Femoral- femoral bypass may also be necessary. Did discuss that she may require blood transfusion and we also discussed that this could lead to limb loss or disability. She understands the above and gives informed consent proceed with surgical intervention. Do not believe that delay is in her best interest for limb salvage. Objective - Exam Narrative Exam: Foot is warm with ischemic rubor and quite tender with some muscular discomfort on palpation consistent with a profoundly ischemic forefoot. - Constitutional Vitals: Vital Signs - 12hr 05/23/18 05/23/18 05/23/18 00:27 00:45 05:08 Temperature 98.0 F 97.8 F Pulse Rate 66 52 L Respiratory 18 16 18 Rate Blood Pressure 131/59 Blood Pressure 143/118 [Left] O2 Sat by Pulse 92 88 Oximetry 05/23/18 05/23/18 05/23/18 09:36 10:00 11:35 Temperature 97.5 F L Pulse Rate 64 66 Respiratory 18 Rate Blood Pressure 133/73 Blood Pressure [Left] O2 Sat by Pulse 95 94 Oximetry 05/23/18 11:36 Temperature Pulse Rate 66 Respiratory Rate Blood Pressure Blood Pressure [Left] O2 Sat by Pulse Oximetry - Labs CBC & Chem 7: 05/23/18 05:59 05/23/18 05:59 Labs: Abnormal lab results 05/22/18 05/22/18 05/22/18 Range/Units 11:32 11:32 16:05 Hgb (10.1-14.3) gm/dl Hct (30.3-42.9) % RDW (13.2-15.2) % [place] % (Auto) (0.0-7.3) % PT 18.1 H (12.2-14.9) Sec. INR 1.40 H (0.87-1.13) Heparin Anti-Xa Level > 2.00 H (0.3-0.7) U.I./ml Crossmatch See Detail 05/22/18 05/23/18 05/23/18 Range/Units 22:30 05:59 05:59 Hgb 15.0 H (10.1-14.3) gm/dl Hct 43.8 H (30.3-42.9) % RDW 17.6 H (13.2-15.2) % [place] % (Auto) 9.5 H (0.0-7.3) % PT (12.2-14.9) Sec. INR (0.87-1.13) Heparin Anti-Xa Level 1.99 H 1.53 H (0.3-0.7) U.I./ml Crossmatch Medications & Allergies - Medications Allergies/Adverse Reactions: Allergies silk tape Allergy (Uncoded 11/01/17 14:50) Blisters Home Medications: Home Medications Medication Instructions Recorded Confirmed Last Taken Type Apixaban [Eliquis] 5 mg PO BID 08/23/17 05/22/18 05/22/18 History Pitavastatin Calcium [LiVALO] 4 mg PO DAILY 08/23/17 05/22/18 05/22/18 History Potassium Bicarbonate/Cit AC 10 meq PO QDAY 11/02/17 05/22/18 11/08/17 History [Effer-K 10 mEq] Digoxin [Lanoxin] 0.125 mg PO DAILY 05/22/18 05/22/18 05/22/18 History Metoprolol [Lopressor TAB] 50 mg PO BID 05/22/18 05/22/18 05/22/18 History NIFEdipine [Nifedipine ER] 30 mg PO QDAY 05/22/18 05/22/18 05/22/18 History Active Medications: Generic Name Dose Route Start Last Admin Trade Name Freq PRN Reason Stop Dose Admin Acetaminophen 650 mg 05/22/18 12:03 Tylenol PO Q4H PRN Pain MILD(1-3)/Fever >100.5/HARDING Acetaminophen/Hydrocodone Bitart 2 each 05/22/18 14:04 05/22/18 23:27 [place] 5/325 PO 2 each Q6H PRN Administration Pain, Moderate (4-6) Albuterol 2.5 mg 05/22/18 12:03 Proventil IH Q4HRT PRN Shortness Of Breath Digoxin 0.125 mg 05/23/18 10:00 05/23/18 11:36 Lanoxin PO 0.125 mg DAILY CASANDRA Administration Heparin Sodium/Sodium Chloride 25,000 unit in 500 mls @ 16 mls/hr 05/22/18 12:00 05/23/18 11:08 Heparin/ 0.45% Nacl-25,000 Unit/500 Ml IV 600 units/hr TITR CASANDRA 12 mls/hr Titration Protocol 800 UNITS/HR Cefazolin Sodium 2 gm in 20 mls @ 80 mls/hr 05/23/18 12:00 Ancef/Sterile Water 2 Gm/20 Ml IV 05/23/18 12:14 PREOP NR Protocol Metoprolol Tartrate 50 mg 05/22/18 22:00 05/23/18 11:35 Lopressor PO 50 mg BID CASANDRA Administration Morphine Sulfate 2 mg 05/22/18 14:04 05/23/18 11:49 Morphine IV 2 mg Q3H PRN Administration Pain, Moderate (4-6) Morphine Sulfate 4 mg 05/22/18 14:04 Morphine IV Q3H PRN Pain , Severe (7-10) Nifedipine 30 mg 05/23/18 10:00 05/23/18 11:36 Procardia Xl PO 30 mg QDAY CASANDRA Administration Ondansetron HCl 4 mg 05/22/18 12:03 Zofran IV Q8H PRN Nausea And Vomiting Potassium Bicarbonate 10 meq 05/23/18 10:00 05/23/18 11:35 Klor-Con PO 10 meq QDAY CASANDRA Administration Pravastatin Sodium 80 mg 05/22/18 22:00 05/22/18 21:21 Pravachol PO 80 mg QHS CASANDRA Administration Sodium Chloride 10 ml 05/22/18 22:00 05/23/18 11:37 Sodium Chloride Flush Syringe 10 Ml IV 10 ml BID CASANDRA Administration Sodium Chloride 10 ml 05/22/18 12:03 Sodium Chloride Flush Syringe 10 Ml IV PRN PRN LINE FLUSH
[2018-05-23] MEDS ORDERED: MARCAINE-EPI 0.5%-1:200,000 INFILTRATI ONE ×2 (12:16→15:08)
[2018-05-23] MEDS ORDERED: HEPARIN 10,000 UNITS/10 ML ONE (12:16)
[2018-05-23] MEDS ORDERED: PROTAMINE SULFATE ONE (12:16)
[2018-05-23] MEDS ORDERED: NACL 0.9% 250ML 250 ML ONE (12:17)
[2018-05-23] MEDS ORDERED: XYLOCAINE 1%/ EPI 1:100,000 INFILTRATI ONE (12:17)
[2018-05-23] MEDS ORDERED: KETALAR ONE (12:35)
[2018-05-23] MEDS ORDERED: DIPRIVAN 10 MG/ML IV ONE (12:35)
[2018-05-23] MEDS ORDERED: XYLOCAINE MPF 2% ONE (12:35)
[2018-05-23] MEDS ORDERED: DILAUDID ONE (12:35)
[2018-05-23] MEDS ORDERED: ZEMURON IV ONE (12:35)
[2018-05-23] MEDS ORDERED: LACTATED RINGERS 1,000 ML IV SCH (13:00)
--- NOTE | 2018-05-23 13:00 | Anesthesia Day of Surgery ---
Anesthesia Day of Surgery - Day of Surgery Patient Examined: Yes Patient H&P Reviewed: Yes Patient is NPO: Yes Beta Blockers: Yes (metoprolol 50mg @ 1100)
--- NOTE | 2018-05-23 13:57 | Progress Note ---
Assessment and Plan /acute arterial occlusion bypass graft with resting ischemia right leg Planned for thrombectomy of aortobifem bypass today continue anticoagulation with heparin drip VS following / HLD (hyperlipidemia) low cholesterol diet, statin therapy, / CAD in [place] artery Statin therapy, risk factor reduction, NO angina at time of admission. /Atrial fibrillation and flutter Continue rate control with metoprolol, and digoxin therpay, telemetry monitoring, / Hypertension Monitor BP q shift, continue Beta sheryl and calcium channel sheryl therapy, monitor BP q shift, / DVT prophylaxis Therapeutic anticoagulation, Subjective Date of service: 05/23/18 Principal diagnosis: acute arterial occlusion bypass graft with resting ischemia right leg Interval history: Patient seen and examined C/o severe pain to RLE Plan for surgery today Objective - Exam Narrative Exam: - Constitutional General appearance: Present: mild distress - EENT Eyes: Present: PERRL ENT: hearing intact, clear oral mucosa - Neck Neck: Present: supple, normal ROM - Respiratory Respiratory effort: normal Respiratory: bilateral: CTA - Cardiovascular Heart Sounds: Present: S1 & S2. Absent: rub, click - Extremities Extremities: abnormal Extremity abnormal: cold, pulses diminished, tender on palpation Peripheral Pulses: abnormal (1+, RLE) - Abdominal General gastrointestinal: Present: soft, non-tender, non-distended, normal bowel sounds Female genitourinary: Present: normal - Integumentary Integumentary: Present: clear, warm, dry - Musculoskeletal Musculoskeletal: gait normal, strength equal bilaterally - Psychiatric Psychiatric: appropriate mood/affect, intact judgment & insight - Neurologic Neurologic: CNII-XII intact, moves all extremities - Constitutional Vitals: Vital Signs - 12hr 05/23/18 05/23/18 05/23/18 05:08 09:36 10:00 Temperature 97.8 F 97.5 F L Pulse Rate 52 L 64 Respiratory 18 18 Rate Blood Pressure 131/59 133/73 O2 Sat by Pulse 88 95 94 Oximetry 05/23/18 05/23/18 05/23/18 11:35 11:36 13:20 Temperature Pulse Rate 66 66 Respiratory 20 Rate Blood Pressure O2 Sat by Pulse Oximetry - Labs CBC & Chem 7: 05/25/18 05:22 05/25/18 05:22 Labs: Abnormal lab results 05/22/18 05/22/18 05/22/18 Range/Units 11:32 16:05 22:30 Hgb (10.1-14.3) gm/dl Hct (30.3-42.9) % RDW (13.2-15.2) % [place] % (Auto) (0.0-7.3) % Heparin Anti-Xa Level > 2.00 H 1.99 H (0.3-0.7) U.I./ml Crossmatch See Detail 05/23/18 05/23/18 Range/Units 05:59 05:59 Hgb 15.0 H (10.1-14.3) gm/dl Hct 43.8 H (30.3-42.9) % RDW 17.6 H (13.2-15.2) % [place] % (Auto) 9.5 H (0.0-7.3) % Heparin Anti-Xa Level 1.53 H (0.3-0.7) U.I./ml Crossmatch
[2018-05-23] MEDS ORDERED: SUBLIMAZE IV ONE (14:00)
[2018-05-23] MEDS ORDERED: HEPARIN 10,000 UNITS/10 ML IV ONE (14:53)
[2018-05-23] MEDS ORDERED: NACL 0.9% 500 ML IRRIGATION ONE (14:53)
[2018-05-23] MEDS ORDERED: NACL 0.9% IR ONE (14:54)
[2018-05-23] MEDS ORDERED: NEO SYNEPHRINE ONE (14:55)
[2018-05-23] MEDS ORDERED: ROBINUL ONE (16:24)
[2018-05-23] MEDS ORDERED: NEO SYNEPHRINE/NS Syringe(OR USE) IV ONE (16:24)
--- NOTE | 2018-05-23 17:58 | Post Operative Note ---
Date of procedure: 05/23/18 Pre-op diagnosis: acute thrombosis aorto femoral bypass graft right leg, rest pain right leg Post-op diagnosis: same Findings: Thrombosed femoral to peroneal artery bypass graft, severe stenosis of the origin of the profunda femoris artery, thrombosed right iliac limb of aortofemoral bypass graft. Successfully reopen the aortic bypass graft and revise the distal anastomosis using patch profundoplasty technique with return of Doppler signals and partial rewarming of the foot. After soft. Did not appear to require fasciotomy. Gaffney we probably removed her from rest pain and that would be the appropriate satisfactory outcome. If rest pain persists we could consider later date repeat bypass graft using CryoVein although I would probably require smoking cessation. Procedure: Aorto femoral graft thrombectomy right leg with Dacron patch revision of outflow tract (profundoplasty), intraoperative arteriogram with fluoroscopy Anesthesia: EMMA Surgeon: DARRYN BARRERA Estimated blood loss: other (200ml) Pathology: list Specimen disposition: to lab Condition: critical Disposition: ICU
[2018-05-23] MEDS: DILAUDID IV PRN ×2 (18:15→19:25)
[2018-05-23] MEDS ORDERED: VERSED IV ONE (18:20)
[2018-05-23] MEDS ORDERED: VERSED ONE (18:22)
--- NOTE | 2018-05-23 18:25 | Operative Report ---
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 anesthesia EBL: 150-200 mL Specimen(s): Thrombus Complications: None Findings: Thrombus involving the right limb of the aortobifemoral bypass graft successfully removed and confirmed with angiography. Outflow end of the right femoral anastomosis really compromised by profunda orificial stenosis. Corrected using dacryon patch profundoplasty technique. Femoral to peroneal artery bypass graft thrombosed and not salvageable. Foot warm or with capillary refill at the completion of the procedure. Procedure: Patient in the supine position after adequate levels of general endotracheal anesthesia was obtained and appropriate monitoring devices placed both groins and the entire right lower extremity was prepped and draped using standard sterile technique. Vertical right groin incision was made through the previous scars and carried down through the subcutaneous tissue. Incision was extended a little proximally and distally in order to accommodate the anticipated further dissection. The dissection was tedious through the scar tissue but ultimately I completely unroofed the right limb of the aortobifemoral graft and its anastomosis with the nome femoral artery, the thrombosed superficial femoral artery with stents, the thrombosed femoral to tibial in situ saphenous vein bypass graft and further delineated the profunda femoral artery down to the main branches. The profunda femoris was very soft and was patent and had Doppler signals but it was the only vessel in the area that did demonstrate patency. That vessel was occluded as was the inflow vessels. Patient remained on a heparin drip throughout the procedure. I then opened the adler of the graft and angled the incision slightly towards the orifice of the profunda femoral. Standard graft thrombectomy was performed with fluoroscopic assistance and the right limb of the graft was reopened with excellent inflow. Contrast was injected retrograde into the aortobifem femoral graft demonstrating complete removal of thrombus. At this point I then inspected the remainder of the adler of the graft decided that the stent that had been placed in the superficial femoral artery several years ago or protruding over the orifice of the profunda and may well contributed to its occlusion. I then amputated the stents flushed with the SFA emanating this issue. Then extended the incision in the graft across the anastomotic line and down the profunda for several centimeters until I was well past the first major branch point. I then obtained a dacryon patch and using at HS-7 suture double tapered configuration four needle technique I proceeded to close the graftotomy and simultaneously perform a profundoplasty. Prior to completion of the suture line I performed another graft thrombectomy of the inflow and removed no further thrombus. I then advanced a olive-tipped catheter down the profunda and proceeded to perform an angiogram demonstrating that the profunda femoral artery through multiple collaterals from the medial descending branch reperfused the popliteal artery and the tibial vessels. I then completed the suture line and then sequentially opened with inflow and outflow vessels. The patient tolerated declamping without difficulty. Profunda femoris developed excellent pulse and Doppler signal. I was then able to detect Doppler signals in the posterior tibial artery at the ankle and the foot appeared to partially rewarm. There was detectable capillary refill in the foot. Hemostasis was obtained using quick clot. The groin was then blocked with a Marcaine field block and then the incision was closed in layers using 3-0 Vicryl subcutaneous 4-0 Monocryl subcuticular. Skin was then sealed with Dermabond. Patient was then extubated and returned to the recovery room in critical but stable condition having tolerated the procedure well. Sponge and needle counts were correct. A progressively stronger Doppler signal was encountered in the posterior tibial artery at the ankle.
--- NOTE | 2018-05-23 19:06 | Post Anesthesia Evaluation ---
- Post Anesthesia Evaluation Patient Participated: Yes Airway Patent: Yes Stable Respiratory Function: Yes Nausea/Vomiting: No Temp > 96.8F: Yes Pain Manageable: Yes Adequeate Hydration: Yes Anesthesia Complications: No Other Comments: Left brachial arterial line removed by MD and manual pressure applied for >20mins. No evidence of bleeding or hematoma at puncture site. Distal pulse at baseline. Dressing applied.
[2018-05-23] MEDS: PRAVACHOL PO SCH (22:53)
[2018-05-24] MEDS: LACTATED RINGERS 1,000 ML IV SCH ×2 (01:19→14:37)
[2018-05-24 04:51] LABS: Hematocrit 38.4 % (30.3-42.9); Hemoglobin 13.1 gm/dl (10.1-14.3)
[2018-05-24 05:09] LABS: Calcium 8.6 mg/dL (8.4-10.2)
[2018-05-24] MEDS: LOPRESSOR PO SCH ×2 (09:36→21:43)
[2018-05-24] MEDS: LANOXIN PO SCH (09:37)
[2018-05-24] MEDS: SODIUM CHLORIDE FLUSH SYRINGE 10 ML IV SCH ×2 (09:37→21:43)
[2018-05-24] MEDS: PROCARDIA XL PO SCH (09:37)
[2018-05-24] MEDS: KLOR-CON PO SCH (10:26)
--- NOTE | 2018-05-24 12:16 | Consultation ---
History of Present Illness Consult date: 05/24/18 Requesting physician: MAGDALENA CHANEL Reason for consult: other (Acute Limb Ischemia; Acute Hypoxemic Respiratory Failure) History of present illness: PULMONARY/CCM CONSULT NOTE (Full dictation # [id number]) Please see dictated notes for full details Past History Past Medical History: atrial fib, CAD, hypertension, hyperlipidemia, migraines, PVD, stroke, other (genetic optic nerve atrophy (blindness)) Past Surgical History: appendectomy, hysterectomy, PTCA (Aorta Bifem, LLE fem- pop 1992, LLE agram with intervention, the above stated right fem-tib bypass with post-op evac of hematoma and open thrombectomy of fem distal), Other Social history: single, , lives with family, smoking Family history: CAD, diabetes, hypertension Medications and Allergies Allergies Allergy/AdvReac Type Severity Reaction Status Date / Time silk tape Allergy Blisters Uncoded 11/01/17 14:50 Home Medications Medication Instructions Recorded Confirmed Last Taken Type Apixaban [Eliquis] 5 mg PO BID 08/23/17 05/22/18 05/22/18 History Pitavastatin Calcium [LiVALO] 4 mg PO DAILY 08/23/17 05/22/18 05/22/18 History Potassium Bicarbonate/Cit AC 10 meq PO QDAY 11/02/17 05/22/18 11/08/17 History [Effer-K 10 mEq] Digoxin [Lanoxin] 0.125 mg PO DAILY 05/22/18 05/22/18 05/22/18 History Metoprolol [Lopressor TAB] 50 mg PO BID 05/22/18 05/22/18 05/22/18 History NIFEdipine [Nifedipine ER] 30 mg PO QDAY 05/22/18 05/22/18 05/22/18 History Active Meds: Active Medications Acetaminophen (Tylenol) 650 mg PO Q4H PRN PRN Reason: Pain MILD(1-3)/Fever >100.5/HARDING Acetaminophen/Hydrocodone Bitart ([place] 5/325) 2 each PO Q6H PRN PRN Reason: Pain, Moderate (4-6) Last Admin: 05/22/18 23:27 Dose: 2 each Documented by: Albuterol (Proventil) 2.5 mg IH Q4HRT PRN PRN Reason: Shortness Of Breath Digoxin (Lanoxin) 0.125 mg PO DAILY CASANDRA Last Admin: 05/24/18 09:37 Dose: 0.125 mg Documented by: Heparin Sodium/Sodium Chloride (Heparin/ 0.45% Nacl-25,000 Unit/500 Ml) 25,000 unit in 500 mls @ 16 mls/hr IV TITR [facility]; Protocol Last Titration: 05/24/18 06:42 Dose: 450 units/hr, 9 mls/hr Documented by: Lactated Ringer's (Lactated Ringers) 1,000 mls @ 75 mls/hr IV DIRECT [facility] Last Admin: 05/24/18 01:19 Dose: 75 mls/hr Documented by: Metoprolol Tartrate (Lopressor) 50 mg PO BID [facility] Last Admin: 05/24/18 09:36 Dose: 50 mg Documented by: Morphine Sulfate (Morphine) 2 mg IV Q3H PRN PRN Reason: Pain, Moderate (4-6) Last Admin: 05/23/18 11:49 Dose: 2 mg Documented by: Morphine Sulfate (Morphine) 4 mg IV Q3H PRN PRN Reason: Pain , Severe (7-10) Nifedipine (Procardia Xl) 30 mg PO QDAY [facility] Last Admin: 05/24/18 09:37 Dose: 30 mg Documented by: Ondansetron HCl (Zofran) 4 mg IV Q8H PRN PRN Reason: Nausea And Vomiting Potassium Bicarbonate (Klor-Con) 10 meq PO QDAY [facility] Last Admin: 05/24/18 10:26 Dose: 10 meq Documented by: Pravastatin Sodium (Pravachol) 80 mg PO QHS [facility] Last Admin: 05/23/18 22:53 Dose: 80 mg Documented by: Sodium Chloride (Sodium Chloride Flush Syringe 10 Ml) 10 ml IV BID [facility] Last Admin: 05/24/18 09:37 Dose: 10 ml Documented by: Sodium Chloride (Sodium Chloride Flush Syringe 10 Ml) 10 ml IV PRN PRN PRN Reason: LINE FLUSH Physical Examination Vital signs: Vital Signs Pulse Ox 98 05/22/18 11:17 Results - Laboratory Findings CBC and BMP: 05/24/18 04:17 05/24/18 04:17 PT/INR, D-dimer PT 18.1 Sec. (12.2-14.9) H 05/22/18 11:32 INR 1.40 (0.87-1.13) H 05/22/18 11:32 Abnormal lab findings: Abnormal Labs 05/22/18 05/22/18 05/22/18 11:32 11:32 11:32 Hgb 14.7 H Hct 43.5 H RDW 17.6 H [place] % (Auto) PT 18.1 H INR 1.40 H Heparin Anti-Xa Level BUN Glucose Crossmatch See Detail 05/22/18 05/22/18 05/23/18 16:05 22:30 05:59 Hgb 15.0 H Hct 43.8 H RDW 17.6 H [place] % (Auto) 9.5 H PT INR Heparin Anti-Xa Level > 2.00 H 1.99 H BUN Glucose Crossmatch 05/23/18 05/23/18 05/24/18 05:59 18:53 04:17 Hgb Hct RDW [place] % (Auto) PT INR Heparin Anti-Xa Level 1.53 H 1.08 H BUN 21 H Glucose 112 H Crossmatch 05/24/18 04:17 Hgb Hct RDW [place] % (Auto) PT INR Heparin Anti-Xa Level 0.72 H BUN Glucose Crossmatch
[2018-05-24] MEDS: PEPCID PO SCH ×2 (13:42→21:43)
--- NOTE | 2018-05-24 14:14 | XRay Report ---
AP CHEST: HISTORY: Hypoxemia, COPD AP view of the chest demonstrates a normal mediastinal and cardiac contour with clear lungs and normal bony and soft tissue structures. IMPRESSION: No acute cardiopulmonary process identified.
--- NOTE | 2018-05-24 15:13 | Progress Note ---
Assessment and Plan /acute arterial occlusion bypass graft with resting ischemia right leg s/p thrombectomy of aortobifem bypass yesterday continue anticoagulation with heparin drip VS following, PT eval transfer out off the ICU / HLD (hyperlipidemia) low cholesterol diet, statin therapy, / CAD in [place] artery Statin therapy, risk factor reduction, NO angina at time of admission. /Atrial fibrillation and flutter Continue rate control with metoprolol, and digoxin therpay, telemetry monitoring, / Hypertension Monitor BP q shift, continue Beta sheryl and calcium channel sheryl therapy, monitor BP q shift, / DVT prophylaxis Therapeutic anticoagulation, Subjective Date of service: 05/24/18 Principal diagnosis: acute arterial occlusion bypass graft with resting ischemia right leg Interval history: Patient seen and examined Improved RLE pain s/p thrombectomy of aortobifem bypass yesterday Family at the bedside updated Objective - Exam Narrative Exam: - Constitutional General appearance: Present: mild distress - EENT Eyes: Present: PERRL ENT: hearing intact, clear oral mucosa - Neck Neck: Present: supple, normal ROM - Respiratory Respiratory effort: normal Respiratory: bilateral: CTA - Cardiovascular Heart Sounds: Present: S1 & S2. Absent: rub, click - Extremities Extremities: abnormal Extremity abnormal: warm, pulses diminished, mild tender on palpation Peripheral Pulses: abnormal (1+, RLE) - Abdominal General gastrointestinal: Present: soft, non-tender, non-distended, normal bowel sounds Female genitourinary: Present: normal - Integumentary Integumentary: Present: clear, warm, dry - Musculoskeletal Musculoskeletal: gait normal, strength equal bilaterally - Psychiatric Psychiatric: appropriate mood/affect, intact judgment & insight - Neurologic Neurologic: CNII-XII intact, moves all extremities - Constitutional Vitals: Vital Signs - 12hr 05/24/18 05/24/18 05/24/18 03:31 03:40 04:00 Temperature 98.8 F 98.8 F Pulse Rate 111 H 97 H Respiratory 13 13 Rate Blood Pressure 101/62 87/49 O2 Sat by Pulse 99 100 Oximetry 05/24/18 05/24/18 05/24/18 04:30 05:01 05:30 Temperature Pulse Rate 105 H 110 H 97 H Respiratory 19 21 13 Rate Blood Pressure 85/47 96/65 95/55 O2 Sat by Pulse 100 100 100 Oximetry 05/24/18 05/24/18 05/24/18 06:00 06:30 07:00 Temperature Pulse Rate 98 H 98 H 74 Respiratory 14 13 16 Rate Blood Pressure 95/55 102/57 108/48 O2 Sat by Pulse 100 99 100 Oximetry 05/24/18 05/24/18 05/24/18 07:30 08:00 08:30 Temperature 98.6 F Pulse Rate 87 77 78 Respiratory 12 10 L 13 Rate Blood Pressure 110/66 118/61 121/55 O2 Sat by Pulse 100 100 100 Oximetry 05/24/18 05/24/18 05/24/18 09:01 09:31 09:36 Temperature Pulse Rate 86 81 69 Respiratory 20 17 Rate Blood Pressure 121/55 112/55 112/55 O2 Sat by Pulse 100 100 Oximetry 05/24/18 05/24/18 05/24/18 09:37 10:00 10:30 Temperature Pulse Rate 65 85 58 L Respiratory 21 16 Rate Blood Pressure 112/55 112/55 112/50 O2 Sat by Pulse 99 100 Oximetry 05/24/18 05/24/18 05/24/18 11:00 11:31 12:00 Temperature 98.0 F Pulse Rate 68 62 64 Respiratory 13 15 18 Rate Blood Pressure 105/38 113/44 109/54 O2 Sat by Pulse 99 99 100 Oximetry 05/24/18 05/24/18 05/24/18 12:30 13:01 13:31 Temperature Pulse Rate 63 80 60 Respiratory 16 21 17 Rate Blood Pressure 114/52 109/54 90/41 O2 Sat by Pulse 100 99 Oximetry 05/24/18 05/24/18 05/24/18 14:01 14:30 15:01 Temperature Pulse Rate 51 L 56 L 71 Respiratory 17 15 23 Rate Blood Pressure 103/40 110/48 110/48 O2 Sat by Pulse 100 100 98 Oximetry - Labs CBC & Chem 7: 05/25/18 05:22 05/25/18 05:22 Labs: Abnormal lab results 05/23/18 05/24/18 05/24/18 Range/Units 18:53 04:17 04:17 Heparin Anti-Xa Level 1.08 H 0.72 H (0.3-0.7) U.I./ml BUN 21 H (7-17) mg/dL Glucose 112 H (65-100) mg/dL
--- NOTE | 2018-05-24 16:57 | Progress Note ---
Assessment and Plan s/p thrombectomy of aortobifem bypass POD 1 continue anticoagulation with heparin drip OOB Subjective Date of service: 05/24/18 Principal diagnosis: acute arterial occlusion bypass graft with resting ischemia right leg Interval history: Patient is doing well, her foot feels much better, pain controlled. Objective - Exam Narrative Exam: right groin incision c/d/i, no hematoma right foot warm, doppler signals DP and PT - Constitutional Vitals: Vital Signs - 12hr 05/24/18 05/24/18 05/24/18 05:01 05:30 06:00 Temperature Pulse Rate 110 H 97 H 98 H Respiratory 21 13 14 Rate Blood Pressure 96/65 95/55 95/55 O2 Sat by Pulse 100 100 100 Oximetry 05/24/18 05/24/18 05/24/18 06:30 07:00 07:30 Temperature Pulse Rate 98 H 74 87 Respiratory 13 16 12 Rate Blood Pressure 102/57 108/48 110/66 O2 Sat by Pulse 99 100 100 Oximetry 05/24/18 05/24/18 05/24/18 08:00 08:30 09:01 Temperature 98.6 F Pulse Rate 77 78 86 Respiratory 10 L 13 20 Rate Blood Pressure 118/61 121/55 121/55 O2 Sat by Pulse 100 100 100 Oximetry 05/24/18 05/24/18 05/24/18 09:31 09:36 09:37 Temperature Pulse Rate 81 69 65 Respiratory 17 Rate Blood Pressure 112/55 112/55 112/55 O2 Sat by Pulse 100 Oximetry 05/24/18 05/24/18 05/24/18 10:00 10:30 11:00 Temperature Pulse Rate 85 58 L 68 Respiratory 21 16 13 Rate Blood Pressure 112/55 112/50 105/38 O2 Sat by Pulse 99 100 99 Oximetry 05/24/18 05/24/18 05/24/18 11:31 12:00 12:30 Temperature 98.0 F Pulse Rate 62 64 63 Respiratory 15 18 16 Rate Blood Pressure 113/44 109/54 114/52 O2 Sat by Pulse 99 100 100 Oximetry 05/24/18 05/24/18 05/24/18 13:01 13:31 14:01 Temperature Pulse Rate 80 60 51 L Respiratory 21 17 17 Rate Blood Pressure 109/54 90/41 103/40 O2 Sat by Pulse 99 100 Oximetry 03/05/24/18 05/24/18 14:30 15:01 15:31 Temperature Pulse Rate 56 L 71 75 Respiratory 15 23 17 Rate Blood Pressure 110/48 110/48 153/125 O2 Sat by Pulse 100 98 Oximetry 05/24/18 05/24/18 05/24/18 16:00 16:01 16:30 Temperature 98.9 F Pulse Rate 57 L 63 52 L Respiratory 16 10 L Rate Blood Pressure 153/125 103/50 O2 Sat by Pulse 99 100 Oximetry - Labs CBC & Chem 7: 05/24/18 04:17 05/24/18 04:17 Labs: Abnormal lab results 05/23/18 05/24/18 05/24/18 Range/Units 18:53 04:17 04:17 Heparin Anti-Xa Level 1.08 H 0.72 H (0.3-0.7) U.I./ml BUN 21 H (7-17) mg/dL Glucose 112 H (65-100) mg/dL Medications & Allergies - Medications Allergies/Adverse Reactions: Allergies silk tape Allergy (Uncoded 11/01/17 14:50) Blisters Home Medications: Home Medications Medication Instructions Recorded Confirmed Last Taken Type Apixaban [Eliquis] 5 mg PO BID 08/23/17 05/22/18 05/22/18 History Pitavastatin Calcium [LiVALO] 4 mg PO DAILY 08/23/17 05/22/18 05/22/18 History Potassium Bicarbonate/Cit AC 10 meq PO QDAY 11/02/17 05/22/18 11/08/17 History [Effer-K 10 mEq] Digoxin [Lanoxin] 0.125 mg PO DAILY 05/22/18 05/22/18 05/22/18 History Metoprolol [Lopressor TAB] 50 mg PO BID 05/22/18 05/22/18 05/22/18 History NIFEdipine [Nifedipine ER] 30 mg PO QDAY 05/22/18 05/22/18 05/22/18 History Active Medications: Generic Name Dose Route Start Last Admin Trade Name Freq PRN Reason Stop Dose Admin Acetaminophen 650 mg 05/22/18 12:03 Tylenol PO Q4H PRN Pain MILD(1-3)/Fever >100.5/HARDING Acetaminophen/Hydrocodone Bitart 2 each 05/22/18 14:04 05/22/18 23:27 [place] 5/325 PO 2 each Q6H PRN Administration Pain, Moderate (4-6) Albuterol 2.5 mg 05/22/18 12:03 Proventil IH Q4HRT PRN Shortness Of Breath Digoxin 0.125 mg 05/23/18 10:00 05/24/18 09:37 Lanoxin PO 0.125 mg DAILY CASANDRA Administration Famotidine 20 mg 05/24/18 13:00 05/24/18 13:42 Pepcid PO 20 mg BID CASANDRA Administration Heparin Sodium/Sodium Chloride 25,000 unit in 500 mls @ 16 mls/hr 05/22/18 12:00 05/24/18 06:42 Heparin/ 0.45% Nacl-25,000 Unit/500 Ml IV 450 units/hr TITR CASANDRA 9 mls/hr Titration Protocol 800 UNITS/HR Lactated Ringer's 1,000 mls @ 75 mls/hr 05/23/18 14:00 05/24/18 14:37 Lactated Ringers IV 75 mls/hr DIRECT CASANDRA Administration Metoprolol Tartrate 50 mg 05/22/18 22:00 05/24/18 09:36 Lopressor PO 50 mg BID CASANDRA Administration Morphine Sulfate 2 mg 05/22/18 14:04 05/23/18 11:49 Morphine IV 2 mg Q3H PRN Administration Pain, Moderate (4-6) Morphine Sulfate 4 mg 05/22/18 14:04 Morphine IV Q3H PRN Pain , Severe (7-10) Nifedipine 30 mg 05/23/18 10:00 05/24/18 09:37 Procardia Xl PO 30 mg QDAY CASANDRA Administration Ondansetron HCl 4 mg 05/22/18 12:03 Zofran IV Q8H PRN Nausea And Vomiting Potassium Bicarbonate 10 meq 05/23/18 10:00 05/24/18 10:26 Klor-Con PO 10 meq QDAY CASANDRA Administration Pravastatin Sodium 80 mg 05/22/18 22:00 05/23/18 22:53 Pravachol PO 80 mg QHS CASANDRA Administration Sodium Chloride 10 ml 05/22/18 22:00 05/24/18 09:37 Sodium Chloride Flush Syringe 10 Ml IV 10 ml BID CASANDRA Administration Sodium Chloride 10 ml 05/22/18 12:03 Sodium Chloride Flush Syringe 10 Ml IV PRN PRN LINE FLUSH
--- NOTE | 2018-05-24 18:00 | Consultation ---
PULMONARY CRITICAL CARE CONSULTATION NOTE CONSULTING PHYSICIAN: Dr. Tapia and Dr. Hsieh. REASON FOR CONSULTATION: Acute limb ischemia, status post revascularization surgery, need for ICU monitoring. CHIEF COMPLAINT AND HISTORY OF PRESENT ILLNESS: The patient is a 72-year-old female with past medical history significant indeed for atherosclerotic vascular disease. She says she has had a revascularization surgery, I believe a fem-pop bypass to the right lower extremity in the past. Complaining about a week of increasing right lower extremity pain, redness, swelling and then after a while, she said that the limb became cool. She went to her vascular surgeon and did undergo a Doppler examination which showed acutely ischemia suspected due to an occlusion of her graft. She was transferred to the intensive care unit and placed on IV heparin drip. The Eliquis was stopped and she was taken into the OR for repair of a thrombosed femoral to peroneal artery bypass graft as well as repair of severe stenosis at the origin of the profunda femoris artery. She had aortofemoral graft thrombectomy of the right leg with a Dacron patch, revision of outflow tract and postop brought into the Critical Care Unit for monitoring. When I stopped by to see her, she told me she was feeling better. Overall, the pain was much less. She could feel her toes and her feet better. She denied any chest pain. She denied any history of a heart attack, but mentions she does have a stent. She has a 10+ pack year tobacco smoking history, continues to smoke about 5-6 a day. She is little allusive and helping me with quantify the amount of her smoking, but does admit that she still smokes up to about 5 sticks a day. This really is as much of the history of presentation. She denies any bleeding. No hemoptysis, no hematochezia, no hematuria. PAST MEDICAL HISTORY: Again; atherosclerotic vascular disease, atrial fibrillation, coronary artery disease, hypertension, history of migraines. PAST SURGICAL HISTORY: She has had an appendectomy. MEDICATIONS: She was on at the time I stopped by to see were reviewed; pertinent medications include the following: Tylenol 650 mg p.o. q. 4 hours p.r.n. mild pain or fevers, [place] 5/325 mg 2 tablets p.o. q. 6 hours p.r.n. moderate pain, albuterol nebulizer treatments 2.5 mg nebulized q. 4 hours, digoxin 0.125 mg p.o. daily. Heparin drip was going, IV. She had been on LR at 75 mL an hour, Lopressor 50 mg p.o. b.i.d., morphine sulfate 4 mg IV q. 3 hours p.r.n. severe pain, Procardia-XL 30 mg p.o. daily, Zofran 4 mg IV q. 8 hours p.r.n. nausea and vomiting, potassium chloride 10 mEq p.o. daily, Pravachol/pravastatin 80 mg p.o. at bedtime. ALLERGIES: SILK TAPE, OTHERWISE NO KNOWN DRUG ALLERGIES. DIET: Thin lady, denies acute weight loss or gain in the preceding few weeks to months. FAMILY AND SOCIAL HISTORY: Lives in the community. There is a family history of hypertension. She has a 10+ pack year tobacco smoking history. She denies alcohol or illicit drug use or abuse. REVIEW OF SYSTEMS: No loss of consciousness. No new onset seizures. No new onset focal weakness. No gross hematochezia or melena. No gross hematuria, no hematemesis, no hemoptysis. Denied polyuria or polydipsia. Denies heat or cold intolerance. Denied any new lumps, bumps, or swellings on her body apart from her right lower extremity right foot. Complete 13-system review of systems obtained. Pertinent positives and/or negatives as in body of history above, otherwise they are noncontributory. PHYSICAL EXAMINATION: VITAL SIGNS: At presentation in the emergency room; she was afebrile, temperature was 97.6 Fahrenheit, pulse was 59, respiratory rate 16, blood pressure 148/63, oxygen sats were 98%, inspired oxygen concentration at that time was not recorded. When I stopped by to see her, O2 sats were 100% that was on 2 liters nasal cannula. GENERAL: Thin elderly looking female, normocephalic, atraumatic, talking to me in full sentences without overt respiratory distress at rest. HEAD, EYES, EARS, NOSE AND THROAT: She is anicteric. No conjunctival erythema. Oropharynx is moist, is a Mallampati #2 oropharynx. No gross jugular venous distention, no thyromegaly, no palpable lymph nodes in the supraclavicular or submandibular lymph node chains. LUNGS: Auscultation of both lung anaya significant only for inspiratory, right lower lobe inspiratory bibasilar crackles. No active wheezing. HEART: Heart sounds 1 and 2 were heard. They were regular in rate and rhythm at the time of my evaluation, without rubs or murmurs. ABDOMEN: Soft, full, bowel sounds are positive, nontender. No palpable hepatosplenomegaly. EXTREMITIES: Without overt digital clubbing or cyanosis. The right lower extremity of her right foot is erythematous. Dorsalis pedis pulses are palpable. Warm to touch. No open sores or cellulitis. NEUROLOGIC: Pupils are equal, round, about 4 mm, reactive to light and accommodation. Extraocular muscle movements are intact. She moves all 4 extremities spontaneously. SKIN: Skin is of normal turgor. She has right foot erythema. It is warm. There is no obvious cellulitis. No decubitus ulcers. LABORATORY DATA: From my review are as follows: Admission white cell count 7100 with a hemoglobin of 14.7, hematocrit of 43.5, platelet count 175. INR was 1.40. Serum sodium was 138, potassium 4.1, chloride 100, bicarbonate 26, BUN 16, creatinine 0.9 and a glucose of 98. Liver function tests essentially within normal limits. Digoxin level was 1.4 at presentation. Her BUN today is 21, creatinine is 1.0. Hemoglobin is 13.1. No microbiology studies. I do not have any chest x-ray. She did get a CT angiogram of the abdomen. I have reviewed the reports and it reports the qagan [place] distal aorta and right iliac arteries as being thrombosed as well as other vascular defects. The lung windows, I have also taken the time to review as they do show the bases of the lungs, some motion artifact, little bit of nodular pattern possibility, although this may just be exenteration due to the motion artifact. No focal infiltrates. ASSESSMENT AND PLAN: 1. Acute limb ischemia secondary to #2. 2. 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 3. Coronary artery disease. 4. Atrial fibrillation. 5. Hyperlipidemia. 6. Hypertension. 7. Tobacco use disorder. 8. Acute hypoxemic respiratory failure, may have been related to atelectasis as much better now. PLAN: We will continue the IV heparin therapy. We will defer to the Vascular Surgery team in terms of transitioning to an oral agent. Oxygen will be weaned to keep sats greater than or equal to about 90%. Because of physical examination, the bibasilar crackles on her tobacco abuse history as well as the CT abdomen windows. I will order a chest x-ray, plus or minus further testing. Tobacco abstinence has been strongly counseled. I do believe she will benefit from pulmonary function testing also. We will continue with p.r.n. albuterol for now, especially in this lady on IV heparin therapy. She will be placed on GI therapy or GI prophylaxis. I will go with Pepcid b.i.d. for now. Aspiration precautions will be maintained. Her chronic disease medications will be continued. Including her antilipid therapy. Rate is well controlled. We will continue the metoprolol for now. Blood pressure is decent. Flu and pneumonia vaccination will be addressed per protocol. Hemoglobin appears to be stable, if okay with the vascular team she probably can be transferred to the medical floor. Thank you very much for the consult. I should mention I will deploy incentive spirometry for her and I have explained the maneuver to her. We will follow along. We will make further recommendations as picture progresses/becomes clearer. JOB# [id number] SUSAN/ASIYA BAUTISTA
[2018-05-24] MEDS: HEPARIN/ 0.45% NACL-25,000 UNIT/500 ML 25,000 UNIT/500 ML BAG IV SCH (21:28)
[2018-05-24] MEDS: NORCO 5/325 PO PRN (21:44)
[2018-05-24] MEDS: PRAVACHOL PO SCH (22:45)
[2018-05-25] MEDS: LACTATED RINGERS 1,000 ML IV SCH ×2 (05:30→21:58)
[2018-05-25 05:55] LABS: Basophils % (Auto) 0.3 % (0.0-1.8); Eosinophils % (Auto) 0.1 % (0.0-4.3); Hematocrit 33.8 % (30.3-42.9); Hemoglobin 11.3 gm/dl (10.1-14.3); Lymphocytes # (Auto) 1.4 K/mm3 (1.2-5.4); Mean Corpuscular HGB Conc 33 % (30-34); Mean Corpuscular Volume 89 fl (79-97); Monocytes # (Auto) 0.9 K/mm3 (0.0-0.8); Monocytes % (Auto) 7.8 % (0.0-7.3); Platelet Count 143 K/mm3 (140-440); Red Blood Count 3.79 M/mm3 (3.65-5.03); Red Cell Distribution Width 17.2 % (13.2-15.2)
[2018-05-25 06:25] LABS: BUN/Creatinine Ratio 20; Blood Urea Nitrogen 16 mg/dL (7-17); Calcium 8.7 mg/dL (8.4-10.2); Hemolysis Index 3
[2018-05-25] MEDS: PEPCID PO SCH ×2 (11:00→23:12)
[2018-05-25] MEDS: PROCARDIA XL PO SCH (11:00)
[2018-05-25] MEDS: LOPRESSOR PO SCH ×2 (11:07→23:19)
[2018-05-25] MEDS: LANOXIN PO SCH (11:09)
[2018-05-25] MEDS: KLOR-CON PO SCH (11:37)
--- NOTE | 2018-05-25 13:49 | Progress Note ---
Assessment and Plan Acute limb ischemia secondary to #2. 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 Coronary artery disease. Atrial fibrillation. Hyperlipidemia. Hypertension. Tobacco use disorder. Acute hypoxemic respiratory failure, may have been related to atelectasis as much better now. - continue supplemental oxygen to keep O2 sat's > 90% - continue bronchodilators with pulmonary hygiene per RT - continue GI prophylaxis - continue full anticoagulation per vascular team recommendations - aspiration precautions - incentive spirometry tp prevent large volume atelectasis - PT/OT as tolerated - increase ambulation as tolerated ... re-evaluate in am & prn Subjective Date of service: 05/25/18 Principal diagnosis: acute arterial occlusion bypass graft with resting ischemia right leg Interval history: Patient is seen today for: acute arterial occlusion bypass graft with resting ischemia right leg Seen and examined at bedside; 24hour events reviewed; nursing and respiratory c are staff consulted; no adverse overnight events reported to me; resting peacefully in bed; feels better overall; denies acute chest pains or palpitations; no hemoptysis; NO gross bleeding Objective Vital Signs - 12hr 05/25/18 05/25/18 05/25/18 04:00 07:00 08:00 Temperature 98.5 F 98.1 F 98.1 F Pulse Rate 61 62 53 L Pulse Rate [ 61 53 L From Monitor] Respiratory 16 19 16 Rate Blood Pressure Blood Pressure 110/44 107/53 [Left] O2 Sat by Pulse 98 97 Oximetry 05/25/18 05/25/18 05/25/18 10:00 11:07 11:09 Temperature Pulse Rate 67 66 Pulse Rate [ From Monitor] Respiratory Rate Blood Pressure 113/69 113/69 Blood Pressure [Left] O2 Sat by Pulse 97 Oximetry Constitutional: no acute distress, other (elderly looking female, normocephalic and with mildly increased resp effort at rest) Eyes: non-icteric ENT: oropharynx moist Neck: supple, no lymphadenopathy Effort: mildly labored Ascultation: Bilateral: diminished breath sounds, rales (inspiratory in bases) Percussion: Bilateral: not dull Cardiovascular: irregular rhythm Gastrointestinal: normoactive bowel sounds, soft, non-tender, non-distended Integumentary: erythema, other (postop insicion) Extremities: no cyanosis, pink and warm, edema, other (relatively weak right dorsalis pedis) Neurologic: normal mental status, non-focal exam, pupils equal and round, CN II- XII normal Psychiatric: mood appropriate, affect normal CBC and BMP: 05/26/18 04:11 05/25/18 05:22 ABG, PT/INR, D-dimer: PT/INR, D-dimer PT 18.1 Sec. (12.2-14.9) H 05/22/18 11:32 INR 1.40 (0.87-1.13) H 05/22/18 11:32 Abnormal lab findings: Abnormal Labs 05/22/18 05/22/18 05/22/18 11:32 11:32 11:32 WBC Hgb 14.7 H Hct 43.5 H RDW 17.6 H Lymph % (Auto) [place] % (Auto) [place] # Seg Neutrophils % Seg Neutrophils # PT 18.1 H INR 1.40 H Heparin Anti-Xa Level BUN Glucose Crossmatch See Detail 05/22/18 05/22/18 05/23/18 16:05 22:30 05:59 WBC Hgb 15.0 H Hct 43.8 H RDW 17.6 H Lymph % (Auto) [place] % (Auto) 9.5 H [place] # Seg Neutrophils % Seg Neutrophils # PT INR Heparin Anti-Xa Level > 2.00 H 1.99 H BUN Glucose Crossmatch 05/23/18 05/23/18 05/24/18 05:59 18:53 04:17 WBC Hgb Hct RDW Lymph % (Auto) [place] % (Auto) [place] # Seg Neutrophils % Seg Neutrophils # PT INR Heparin Anti-Xa Level 1.53 H 1.08 H BUN 21 H Glucose 112 H Crossmatch 05/24/18 05/25/18 05/25/18 04:17 05:22 05:22 WBC 11.5 H Hgb Hct RDW 17.2 H Lymph % (Auto) 12.0 L [place] % (Auto) 7.8 H [place] # 0.9 H Seg Neutrophils % 79.8 H Seg Neutrophils # 9.1 H PT INR Heparin Anti-Xa Level 0.72 H BUN Glucose 122 H Crossmatch Chest x-ray: image reviewed (mild COPD changes with slightly increased interstitial markings also) Allied health notes reviewed: nursing
--- NOTE | 2018-05-25 14:17 | Progress Note ---
Assessment and Plan /acute arterial occlusion bypass graft with resting ischemia right leg s/p thrombectomy of aortobifem bypass on 05/23/18 continue anticoagulation with heparin drip VS following, PT eval transfer out off the IMCU / HLD (hyperlipidemia) low cholesterol diet, statin therapy, / CAD in [place] artery Statin therapy, risk factor reduction, NO angina at time of admission. /Atrial fibrillation and flutter Continue rate control with metoprolol, and digoxin therpay, telemetry monitoring, / Hypertension Monitor BP q shift, continue Beta sheryl and calcium channel sheryl therapy, monitor BP q shift, / DVT prophylaxis Therapeutic anticoagulation, Subjective Date of service: 05/25/18 Principal diagnosis: acute arterial occlusion bypass graft with resting ischemia right leg Interval history: Patient seen and examined Improved RLE pain s/p thrombectomy of aortobifem bypass Family at the bedside updated Objective - Exam Narrative Exam: - Constitutional General appearance: Present: mild distress - EENT Eyes: Present: PERRL ENT: hearing intact, clear oral mucosa - Neck Neck: Present: supple, normal ROM - Respiratory Respiratory effort: normal Respiratory: bilateral: CTA - Cardiovascular Heart Sounds: Present: S1 & S2. Absent: rub, click - Extremities Extremities: abnormal Extremity abnormal: warm, pulses diminished, mild tender on palpation Peripheral Pulses: abnormal (1+, RLE) - Abdominal General gastrointestinal: Present: soft, non-tender, non-distended, normal bowel sounds Female genitourinary: Present: normal - Integumentary Integumentary: Present: clear, warm, dry - Musculoskeletal Musculoskeletal: gait normal, strength equal bilaterally - Psychiatric Psychiatric: appropriate mood/affect, intact judgment & insight - Neurologic Neurologic: CNII-XII intact, moves all extremities - Constitutional Vitals: Vital Signs - 12hr 05/25/18 05/25/18 05/25/18 04:00 07:00 08:00 Temperature 98.5 F 98.1 F 98.1 F Pulse Rate 61 62 53 L Pulse Rate [ 61 53 L From Monitor] Respiratory 16 19 16 Rate Blood Pressure Blood Pressure 110/44 107/53 [Left] O2 Sat by Pulse 98 97 Oximetry 05/25/18 05/25/18 05/25/18 10:00 11:07 11:09 Temperature Pulse Rate 67 66 Pulse Rate [ From Monitor] Respiratory Rate Blood Pressure 113/69 113/69 Blood Pressure [Left] O2 Sat by Pulse 97 Oximetry - Labs CBC & Chem 7: 05/26/18 04:11 05/25/18 05:22 Labs: Abnormal lab results 05/22/18 05/25/18 05/25/18 Range/Units 11:32 05:22 05:22 WBC 11.5 H (4.5-11.0) K/mm3 RDW 17.2 H (13.2-15.2) % Lymph % (Auto) 12.0 L (13.4-35.0) % Yell % (Auto) 7.8 H (0.0-7.3) % Yell # 0.9 H (0.0-0.8) K/mm3 Seg Neutrophils % 79.8 H (40.0-70.0) % Seg Neutrophils # 9.1 H (1.8-7.7) K/mm3 Heparin Anti-Xa Level (0.3-0.7) U.I./ml Glucose 122 H (65-100) mg/dL Crossmatch See Detail 05/25/18 Range/Units 13:51 WBC (4.5-11.0) K/mm3 RDW (13.2-15.2) % Lymph % (Auto) (13.4-35.0) % [place] % (Auto) (0.0-7.3) % Yell # (0.0-0.8) K/mm3 Seg Neutrophils % (40.0-70.0) % Seg Neutrophils # (1.8-7.7) K/mm3 Heparin Anti-Xa Level 0.24 L (0.3-0.7) U.I./ml Glucose (65-100) mg/dL Crossmatch
--- NOTE | 2018-05-25 18:04 | Progress Note ---
Assessment and Plan Pt s/p open thrombectomy of the right limb of the Aorta-bifem with profundaplasty. Her rest pain appears to have improved. She remains on Heparin which will need to be converted back to Eliquis. Continue to increase activity. If this is tolerated, then could likely go home soon after that. - Patient Problems (1) Ischemia of right lower extremity Current Visit: Yes Status: Acute (2) CAD (coronary artery disease) Current Visit: Yes Status: Acute (3) HLD (hyperlipidemia) Current Visit: Yes Status: Acute Qualifiers: Hyperlipidemia type: mixed hyperlipidemia Qualified Code(s): E78.2 - Mixed hyperlipidemia (4) Atrial fibrillation and flutter Current Visit: No Status: Chronic (5) Hyperlipemia Current Visit: No Status: Chronic Qualifiers: Hyperlipidemia type: unspecified Qualified Code(s): E78.5 - Hyperlipidemia, unspecified (6) Hypertension Current Visit: No Status: Chronic Qualifiers: Hypertension type: essential hypertension Qualified Code(s): I10 - Essential (primary) hypertension Subjective Date of service: 05/25/18 Principal diagnosis: acute arterial occlusion bypass graft with resting ischemia right leg Interval history: Pt awake and alert. C/o mild discomfort to Right distal second toe. OOB ambulating in the room without much difficulty. Objective - Constitutional Vitals: Vital Signs - 12hr 05/25/18 05/25/18 05/25/18 07:00 08:00 10:00 Temperature 98.1 F 98.1 F Pulse Rate 62 53 L Pulse Rate [ 53 L From Monitor] Respiratory 19 16 Rate Blood Pressure Blood Pressure 107/53 [Left] O2 Sat by Pulse 97 97 Oximetry 05/25/18 05/25/18 05/25/18 11:00 11:07 11:09 Temperature 97.4 F L Pulse Rate 67 66 Pulse Rate [ From Monitor] Respiratory Rate Blood Pressure 113/69 113/69 Blood Pressure [Left] O2 Sat by Pulse Oximetry 05/25/18 05/25/18 05/25/18 12:00 16:00 17:01 Temperature 97.8 F Pulse Rate 53 L 53 L 64 Pulse Rate [ 53 L 53 L From Monitor] Respiratory 16 16 18 Rate Blood Pressure Blood Pressure 130/56 [Left] O2 Sat by Pulse 97 97 98 Oximetry General appearance: Present: no acute distress - EENT Eyes: EOM intact ENT: hearing intact - Neck Neck: supple - Respiratory Respiratory effort: normal Extremities: normal temperature (foot warm , re-vascularization rubor from mid to distal right foot. Discoloration to the distal 2nd toe (subungual), and lateral 5th MT head fissure) - Neurologic Neurologic: no focal deficits - Psychiatric Psychiatric: appropriate mood/affect, intact judgment & insight, cooperative - Labs CBC & Chem 7: 05/25/18 05:22 05/25/18 05:22 Labs: Abnormal lab results 05/22/18 05/25/18 05/25/18 Range/Units 11:32 05:22 05:22 WBC 11.5 H (4.5-11.0) K/mm3 RDW 17.2 H (13.2-15.2) % Lymph % (Auto) 12.0 L (13.4-35.0) % [place] % (Auto) 7.8 H (0.0-7.3) % [place] # 0.9 H (0.0-0.8) K/mm3 Seg Neutrophils % 79.8 H (40.0-70.0) % Seg Neutrophils # 9.1 H (1.8-7.7) K/mm3 Heparin Anti-Xa Level (0.3-0.7) U.I./ml Glucose 122 H (65-100) mg/dL Crossmatch See Detail 05/25/18 Range/Units 13:51 WBC (4.5-11.0) K/mm3 RDW (13.2-15.2) % Lymph % (Auto) (13.4-35.0) % [place] % (Auto) (0.0-7.3) % [place] # (0.0-0.8) K/mm3 Seg Neutrophils % (40.0-70.0) % Seg Neutrophils # (1.8-7.7) K/mm3 Heparin Anti-Xa Level 0.24 L (0.3-0.7) U.I./ml Glucose (65-100) mg/dL Crossmatch Medications & Allergies - Medications Allergies/Adverse Reactions: Allergies silk tape Allergy (Uncoded 11/01/17 14:50) Blisters Home Medications: Home Medications Medication Instructions Recorded Confirmed Last Taken Type Apixaban [Eliquis] 5 mg PO BID 08/23/17 05/22/1819 History Pitavastatin Calcium [LiVALO] 4 mg PO DAILY 08/23/17 05/22/18 05/22/18 History Potassium Bicarbonate/Cit AC 10 meq PO QDAY 11/02/17 05/22/18 11/08/17 History [Effer-K 10 mEq] Digoxin [Lanoxin] 0.125 mg PO DAILY 05/22/18 05/22/18 05/22/18 History Metoprolol [Lopressor TAB] 50 mg PO BID 05/22/18 05/22/18 05/22/18 History NIFEdipine [Nifedipine ER] 30 mg PO QDAY 05/22/18 05/22/18 05/22/18 History Active Medications: Generic Name Dose Route Start Last Admin Trade Name Freq PRN Reason Stop Dose Admin Acetaminophen 650 mg 05/22/18 12:03 Tylenol PO Q4H PRN Pain MILD(1-3)/Fever >100.5/HARDING Acetaminophen/Hydrocodone Bitart 2 each 05/22/18 14:04 05/24/18 21:44 [place] 5/325 PO 2 each Q6H PRN Administration Pain, Moderate (4-6) Albuterol 2.5 mg 05/22/18 12:03 Proventil IH Q4HRT PRN Shortness Of Breath Digoxin 0.125 mg 05/23/18 10:00 05/25/18 11:09 Lanoxin PO 0.125 mg DAILY CASANDRA Administration Famotidine 20 mg 05/24/18 13:00 05/25/18 11:00 Pepcid PO 20 mg BID CASANDRA Administration Heparin Sodium/Sodium Chloride 25,000 unit in 500 mls @ 16 mls/hr 05/22/18 12:00 05/25/18 16:09 Heparin/ 0.45% Nacl-25,000 Unit/500 Ml IV 500 units/hr TITR CASANDRA 10 mls/hr Titration Protocol 800 UNITS/HR Lactated Ringer's 1,000 mls @ 75 mls/hr 05/23/18 14:00 05/25/18 05:30 Lactated Ringers IV 75 mls/hr DIRECT CASANDRA Administration Metoprolol Tartrate 50 mg 05/22/18 22:00 05/25/18 11:07 Lopressor PO 50 mg BID CASANDRA Administration Morphine Sulfate 2 mg 05/22/18 14:04 05/23/18 11:49 Morphine IV 2 mg Q3H PRN Administration Pain, Moderate (4-6) Morphine Sulfate 4 mg 05/22/18 14:04 Morphine IV Q3H PRN Pain , Severe (7-10) Nifedipine 30 mg 05/23/18 10:00 05/25/18 11:00 Procardia Xl PO 30 mg QDAY CASANDRA Administration Ondansetron HCl 4 mg 05/22/18 12:03 Zofran IV Q8H PRN Nausea And Vomiting Potassium Bicarbonate 10 meq 05/23/18 10:00 05/25/18 11:37 Klor-Con PO 10 meq QDAY CASANDRA Administration Pravastatin Sodium 80 mg 05/22/18 22:00 05/24/18 22:45 Pravachol PO 80 mg QHS CASANDRA Administration Sodium Chloride 10 ml 05/22/18 22:00 05/24/18 21:43 Sodium Chloride Flush Syringe 10 Ml IV 10 ml BID CASANDRA Administration Sodium Chloride 10 ml 05/22/18 12:03 Sodium Chloride Flush Syringe 10 Ml IV PRN PRN LINE FLUSH
[2018-05-25] MEDS: SODIUM CHLORIDE FLUSH SYRINGE 10 ML IV SCH (23:20)
[2018-05-26] MEDS: PRAVACHOL PO SCH ×2 (04:10→23:01)
[2018-05-26] MEDS: MORPHINE IV PRN (04:11)
[2018-05-26 04:42] LABS: Hematocrit 38.7 % (30.3-42.9); Hemoglobin 13.3 gm/dl (10.1-14.3)
[2018-05-26] MEDS ORDERED: HALDOL IM PRN (05:50)
[2018-05-26] MEDS: ELIQUIS PO SCH ×3 (08:12→23:02)
[2018-05-26] MEDS: SODIUM CHLORIDE FLUSH SYRINGE 10 ML IV SCH ×2 (10:17→23:00)
[2018-05-26] MEDS: PEPCID PO SCH ×2 (10:19→23:03)
[2018-05-26] MEDS: LOPRESSOR PO SCH ×2 (10:26→23:01)
[2018-05-26] MEDS: LANOXIN PO SCH (10:30)
[2018-05-26] MEDS: PROCARDIA XL PO SCH (10:30)
[2018-05-26] MEDS: KLOR-CON PO SCH (11:40)
--- NOTE | 2018-05-26 12:02 | Progress Note ---
Assessment and Plan /acute arterial occlusion bypass graft with resting ischemia right leg s/p thrombectomy of aortobifem bypass on 05/23/18 continued anticoagulation with heparin drip, now changed to eliquis VS following, PT eval pending / HLD (hyperlipidemia) low cholesterol diet, statin therapy, / CAD in [place] artery Statin therapy, risk factor reduction, NO angina at time of admission. /Atrial fibrillation and flutter Continue rate control with metoprolol, and digoxin therpay, telemetry monitoring, AC with eliquis / Hypertension Monitor BP q shift, continue Beta sheryl and calcium channel sheryl therapy, monitor BP q shift, / DVT prophylaxis Therapeutic anticoagulation, Subjective Date of service: 05/26/18 Principal diagnosis: acute arterial occlusion bypass graft with resting ischemia right leg Interval history: Patient seen and examined Improved RLE pain and able to bear wt on right foot s/p thrombectomy of aortobifem bypass Family at the bedside updated Objective - Exam Narrative Exam: - Constitutional General appearance: Present: mild distress - EENT Eyes: Present: PERRL ENT: hearing intact, clear oral mucosa - Neck Neck: Present: supple, normal ROM - Respiratory Respiratory effort: normal Respiratory: bilateral: CTA - Cardiovascular Heart Sounds: Present: S1 & S2. Absent: rub, click - Extremities Extremities: abnormal Extremity abnormal: warm, pulses present, mild tender on palpation Peripheral Pulses: abnormal (1+, RLE) - Abdominal General gastrointestinal: Present: soft, non-tender, non-distended, normal bowel sounds Female genitourinary: Present: normal - Integumentary Integumentary: Present: clear, warm, dry - Musculoskeletal Musculoskeletal: gait normal, strength equal bilaterally - Psychiatric Psychiatric: appropriate mood/affect, intact judgment & insight - Neurologic Neurologic: CNII-XII intact, moves all extremities - Constitutional Vitals: Vital Signs - 12hr 05/26/18 05/26/18 05/26/18 02:48 10:22 10:24 Temperature 97.9 F Pulse Rate 61 67 60 Respiratory 18 Rate Blood Pressure 143/59 Blood Pressure 108/53 [Left] O2 Sat by Pulse 97 96 Oximetry 05/26/18 05/26/18 10:26 10:30 Temperature Pulse Rate 60 60 Respiratory Rate Blood Pressure 108/53 108/53 Blood Pressure [Left] O2 Sat by Pulse Oximetry - Labs CBC & Chem 7: 05/26/18 04:11 05/25/18 05:22 Labs: Abnormal lab results 05/25/18 05/25/18 05/26/18 Range/Units 13:51 21:29 04:11 Heparin Anti-Xa Level 0.24 L 0.24 L 0.22 L (0.3-0.7) U.I./ml 05/26/18 Range/Units 10:49 Heparin Anti-Xa Level > 2.00 H (0.3-0.7) U.I./ml
--- NOTE | 2018-05-26 13:10 | Progress Note ---
Assessment and Plan Acute hypoxemic respiratory failure, atelectasis Acute limb ischemia secondary to #3. 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 Coronary artery disease. Atrial fibrillation. Hyperlipidemia. Hypertension. Tobacco use disorder. Subjective Date of service: 05/26/18 Principal diagnosis: acute arterial occlusion bypass graft with resting ischemia right leg Interval history: Patient is seen today for: acute arterial occlusion bypass graft with resting ischemia right leg Seen and examined at bedside; 24hour events reviewed; nursing and respiratory care staff consulted; no adverse overnight events reported to me; on going pain in the right leg, but much improved;no chest pain, no shortness of breath, no fevers or chill, no nausea or vomiting s/p thrombectomy of aortobifem bypass on 05/23/18 Daughter at the bedside Objective - Exam Narrative Exam: Vitals reviewed Narrative Exam: Atrauatic, normocephalic, not in any distres. Lying quietly in bed - Constitutional General appearance: Present: mild distress - EENT Eyes: Present: PERRL ENT: hearing intact, clear oral mucosa - Neck Neck: Present: supple, normal ROM - Respiratory Respiratory effort: normal Respiratory: bilateral: CTA - Cardiovascular Heart Sounds: Present: S1 & S2. Absent: rub, click - Extremities Extremities: abnormal right lower extremity Extremity abnormal: warm, pulses present, mild tender on palpation Peripheral Pulses: abnormal (1+, RLE) Right Groin incision clean, dry without any signs of hematoma or infection Right foot is red - Abdominal General gastrointestinal: Present: soft, non-tender, non-distended, normal bowel sounds Female genitourinary: Present: normal external genitalia - Integumentary Integumentary: Present: clear, warm, dry - Musculoskeletal Musculoskeletal: strength equal bilaterally - Psychiatric Psychiatric: appropriate mood/affect, intact judgment & insight - Neurologic Neurologic: CNII-XII intact, moves all extremities Vital Signs - 12hr 05/26/18 05/26/18 05/26/18 02:48 10:22 10:24 Temperature 97.9 F Pulse Rate 61 67 60 Respiratory 18 Rate Blood Pressure 143/59 Blood Pressure 108/53 [Left] O2 Sat by Pulse 97 96 Oximetry 05/26/18 05/26/18 10:26 10:30 Temperature Pulse Rate 60 60 Respiratory Rate Blood Pressure 108/53 108/53 Blood Pressure [Left] O2 Sat by Pulse Oximetry CBC and BMP: 05/26/18 04:11 05/25/18 05:22 ABG, PT/INR, D-dimer: PT/INR, D-dimer PT 18.1 Sec. (12.2-14.9) H 05/22/18 11:32 INR 1.40 (0.87-1.13) H 05/22/18 11:32 Abnormal lab findings: Abnormal Labs 05/22/18 05/22/18 05/22/18 11:32 11:32 11:32 WBC Hgb 14.7 H Hct 43.5 H RDW 17.6 H Lymph % (Auto) [place] % (Auto) [place] # Seg Neutrophils % Seg Neutrophils # PT 18.1 H INR 1.40 H Heparin Anti-Xa Level BUN Glucose Crossmatch See Detail 05/22/18 05/22/18 05/23/18 16:05 22:30 05:59 WBC Hgb 15.0 H Hct 43.8 H RDW 17.6 H Lymph % (Auto) [place] % (Auto) 9.5 H [place] # Seg Neutrophils % Seg Neutrophils # PT INR Heparin Anti-Xa Level > 2.00 H 1.99 H BUN Glucose Crossmatch 05/23/18 05/23/18 05/24/18 05:59 18:53 04:17 WBC Hgb Hct RDW Lymph % (Auto) [place] % (Auto) [place] # Seg Neutrophils % Seg Neutrophils # PT INR Heparin Anti-Xa Level 1.53 H 1.08 H BUN 21 H Glucose 112 H Crossmatch 05/24/18 05/25/18 05/25/18 04:17 05:22 05:22 WBC 11.5 H Hgb Hct RDW 17.2 H Lymph % (Auto) 12.0 L [place] % (Auto) 7.8 H [place] # 0.9 H Seg Neutrophils % 79.8 H Seg Neutrophils # 9.1 H PT INR Heparin Anti-Xa Level 0.72 H BUN Glucose 122 H Crossmatch 05/25/18 05/25/18 05/26/18 13:51 21:29 04:11 WBC Hgb Hct RDW Lymph % (Auto) [place] % (Auto) [place] # Seg Neutrophils % Seg Neutrophils # PT INR Heparin Anti-Xa Level 0.24 L 0.24 L 0.22 L BUN Glucose Crossmatch 05/26/18 10:49 WBC Hgb Hct RDW Lymph % (Auto) [place] % (Auto) [place] # Seg Neutrophils % Seg Neutrophils # PT INR Heparin Anti-Xa Level > 2.00 H BUN Glucose Crossmatch
--- NOTE | 2018-05-26 13:32 | Progress Note ---
Assessment and Plan - Patient Problems (1) Acute occlusion of artery of lower extremity due to thrombosis Current Visit: Yes Status: Resolved Plan to address problem: Transitioning to oral anticoagulation increasing activity. Like to see 24 hours of successful patency then could be discharged home as soon as Monday. Subjective Date of service: 05/26/18 Principal diagnosis: acute arterial occlusion bypass graft with resting ischemia right leg Interval history: Walking with less pain. Toe discomfort diminished. Started oral anticoagulation this morning. Heparin has been discontinued. Objective - Exam Narrative Exam: Right foot warm with good capillary refill. A surgical incision right groin stable without hematoma or infection. - Constitutional Vitals: Vital Signs - 12hr 05/26/18 05/26/18 05/26/18 02:48 10:22 10:24 Temperature 97.9 F Pulse Rate 61 67 60 Respiratory 18 Rate Blood Pressure 143/59 Blood Pressure 108/53 [Left] O2 Sat by Pulse 97 96 Oximetry 05/26/18 05/26/18 10:26 10:30 Temperature Pulse Rate 60 60 Respiratory Rate Blood Pressure 108/53 108/53 Blood Pressure [Left] O2 Sat by Pulse Oximetry - Labs CBC & Chem 7: 05/26/18 04:11 05/25/18 05:22 Labs: Abnormal lab results 05/25/18 05/25/18 05/26/18 Range/Units 13:51 21:29 04:11 Heparin Anti-Xa Level 0.24 L 0.24 L 0.22 L (0.3-0.7) U.I./ml 05/26/18 Range/Units 10:49 Heparin Anti-Xa Level > 2.00 H (0.3-0.7) U.I./ml Medications & Allergies - Medications Allergies/Adverse Reactions: Allergies silk tape Allergy (Uncoded 11/01/17 14:50) Blisters Home Medications: Home Medications Medication Instructions Recorded Confirmed Last Taken Type Apixaban [Eliquis] 5 mg PO BID 08/23/17 05/22/18 05/22/18 History Pitavastatin Calcium [LiVALO] 4 mg PO DAILY 08/23/17 05/22/18 05/22/18 History Potassium Bicarbonate/Cit AC 10 meq PO QDAY 11/02/17 05/22/18 11/08/17 History [Effer-K 10 mEq] Digoxin [Lanoxin] 0.125 mg PO DAILY 05/22/18 05/22/18 05/22/18 History Metoprolol [Lopressor TAB] 50 mg PO BID 05/22/18 05/22/18 05/22/18 History NIFEdipine [Nifedipine ER] 30 mg PO QDAY 05/22/18 05/22/18 05/22/18 History Active Medications: Generic Name Dose Route Start Last Admin Trade Name Freq PRN Reason Stop Dose Admin Acetaminophen 650 mg 05/22/18 12:03 Tylenol PO Q4H PRN Pain MILD(1-3)/Fever >100.5/HARDING Acetaminophen/Hydrocodone Bitart 2 each 05/22/18 14:04 05/24/18 21:44 [place] 5/325 PO 2 each Q6H PRN Administration Pain, Moderate (4-6) Albuterol 2.5 mg 05/22/18 12:03 Proventil IH Q4HRT PRN Shortness Of Breath Apixaban 5 mg 05/26/18 08:00 05/26/18 10:43 Eliquis PO Not Given Q12HR CASANDRA Digoxin 0.125 mg 05/23/18 10:00 05/26/18 10:30 Lanoxin PO 0.125 mg DAILY CASANDRA Administration Famotidine 20 mg 05/24/18 13:00 05/26/18 10:19 Pepcid PO 20 mg BID CASANDRA Administration Haloperidol Lactate 5 mg 05/26/18 05:50 Haldol IM Q6H PRN Agitation Lactated Ringer's 1,000 mls @ 75 mls/hr 05/23/18 14:00 05/25/18 21:58 Lactated Ringers IV 75 mls/hr DIRECT CASANDRA Administration Metoprolol Tartrate 50 mg 05/22/18 22:00 05/26/18 10:26 Lopressor PO Not Given BID CASANDRA Morphine Sulfate 2 mg 05/22/18 14:04 05/26/18 04:11 Morphine IV 2 mg Q3H PRN Administration Pain, Moderate (4-6) Morphine Sulfate 4 mg 05/22/18 14:04 Morphine IV Q3H PRN Pain , Severe (7-10) Nifedipine 30 mg 05/23/18 10:00 05/26/18 10:30 Procardia Xl PO Not Given QDAY CASANDRA Ondansetron HCl 4 mg 05/22/18 12:03 Zofran IV Q8H PRN Nausea And Vomiting Potassium Bicarbonate 10 meq 05/23/18 10:00 05/25/18 11:37 Klor-Con PO 10 meq QDAY CASANDRA Administration Pravastatin Sodium 80 mg 05/22/18 22:00 05/26/18 04:10 Pravachol PO Not Given QHS CASANDRA Sodium Chloride 10 ml 05/22/18 22:00 05/26/18 10:17 Sodium Chloride Flush Syringe 10 Ml IV 10 ml BID CASANDRA Administration Sodium Chloride 10 ml 05/22/18 12:03 Sodium Chloride Flush Syringe 10 Ml IV PRN PRN LINE FLUSH
[2018-05-27] MEDS: ELIQUIS PO SCH (09:43)
[2018-05-27] MEDS: PEPCID PO SCH (09:43)
[2018-05-27] MEDS: KLOR-CON PO SCH (09:44)
[2018-05-27] MEDS: LANOXIN PO SCH (09:45)
[2018-05-27] MEDS: PROCARDIA XL PO SCH (09:45)
[2018-05-27] MEDS: LOPRESSOR PO SCH (09:46)
[2018-05-27] MEDS: SODIUM CHLORIDE FLUSH SYRINGE 10 ML IV SCH (09:47)
[2018-05-27] MEDS ORDERED: FLEET MINERAL OIL PR ONE (12:00)
[2018-05-27] MEDS ORDERED: DULCOLAX PR SCH (12:00)
[2018-05-27] MEDS ORDERED: COLACE PO SCH (12:00)
[2018-05-27] MEDS ORDERED: MIRALAX 3350 PO SCH (12:00)
--- NOTE | 2018-05-27 12:06 | Progress Note ---
Assessment and Plan - Patient Problems (1) Acute occlusion of artery of lower extremity due to thrombosis Current Visit: Yes Status: Resolved Plan to address problem: doing well after thrombectomy and revasc with essentially a profundaplasty and relief of rest pain. successful transition back to Eliquis. can be discharge home to be followed up in office in 7-14 days. Subjective Date of service: 05/27/18 Principal diagnosis: acute arterial occlusion bypass graft with resting ischemia right leg Interval history: walking better. no confusion last night- slept well Objective - Exam Narrative Exam: right foot warm with improved appearance. ? sub-unguinal embolism 2nd digit- not changed. tenderness less. small area great toe- same. 5th digit less cyanotic- viable and not tender.Groin incisino clean, dry without any signs of hematoma or infection - Constitutional Vitals: Vital Signs - 12hr 05/27/18 05/27/18 05/27/18 01:43 01:54 04:00 Temperature 98.7 F Pulse Rate 60 60 Respiratory 20 Rate Blood Pressure 125/54 O2 Sat by Pulse 93 Oximetry 05/27/18 05/27/18 05/27/18 07:39 09:41 09:45 Temperature 98.1 F Pulse Rate 58 L 73 73 Respiratory 18 Rate Blood Pressure 135/50 117/62 117/62 O2 Sat by Pulse 96 96 Oximetry 05/27/18 09:46 Temperature Pulse Rate 73 Respiratory Rate Blood Pressure 117/62 O2 Sat by Pulse Oximetry - Labs CBC & Chem 7: 05/26/18 04:11 05/25/18 05:22 Medications & Allergies - Medications Allergies/Adverse Reactions: Allergies silk tape Allergy (Uncoded 11/01/17 14:50) Blisters Home Medications: Home Medications Medication Instructions Recorded Confirmed Last Taken Type Apixaban [Eliquis] 5 mg PO BID 08/23/17 05/22/18 05/22/18 History Pitavastatin Calcium [LiVALO] 4 mg PO DAILY 08/23/17 05/22/18 05/22/18 History Potassium Bicarbonate/Cit AC 10 meq PO QDAY 11/02/17 05/22/18 11/08/17 History [Effer-K 10 mEq] Digoxin [Lanoxin] 0.125 mg PO DAILY 05/22/18 05/22/18 05/22/18 History Metoprolol [Lopressor TAB] 50 mg PO BID 05/22/18 05/22/18 05/22/18 History NIFEdipine [Nifedipine ER] 30 mg PO QDAY 05/22/18 05/22/18 05/22/18 History HYDROcodone/APAP 5-325 [[place] 1 each PO Q6HR PRN #28 tablet 05/27/18 Unknown Rx 5/325 mg] Active Medications: Generic Name Dose Route Start Last Admin Trade Name Freq PRN Reason Stop Dose Admin Acetaminophen 650 mg 05/22/18 12:03 Tylenol PO Q4H PRN Pain MILD(1-3)/Fever >100.5/HARDING Acetaminophen/Hydrocodone Bitart 2 each 05/22/18 14:04 05/24/18 21:44 [place] 5/325 PO 2 each Q6H PRN Administration Pain, Moderate (4-6) Albuterol 2.5 mg 05/22/18 12:03 Proventil IH Q4HRT PRN Shortness Of Breath Apixaban 5 mg 05/26/18 08:00 05/27/18 09:43 Eliquis PO 5 mg Q12HR CASANDRA Administration Bisacodyl 10 mg 05/27/18 12:00 Dulcolax [place] QDAY CASANDRA Digoxin 0.125 mg 05/23/18 10:00 05/27/18 09:45 Lanoxin PO 0.125 mg DAILY CASANDRA Administration Docusate Sodium 100 mg 05/27/18 12:00 Colace PO BID CASANDRA Famotidine 20 mg 05/24/18 13:00 05/27/18 09:43 Pepcid PO 20 mg BID CASANDRA Administration Haloperidol Lactate 5 mg 05/26/18 05:50 Haldol IM Q6H PRN Agitation Metoprolol Tartrate 50 mg 05/22/18 22:00 05/27/18 09:46 Lopressor PO Not Given BID CASANDRA Nifedipine 30 mg 05/23/18 10:00 05/27/18 09:45 Procardia Xl PO 30 mg QDAY CASANDRA Administration Ondansetron HCl 4 mg 05/22/18 12:03 Zofran IV Q8H PRN Nausea And Vomiting Polyethylene Glycol 17 gm 05/27/18 12:00 Miralax 3350 PO QDAY CASANDRA Potassium Bicarbonate 10 meq 05/23/18 10:00 05/27/18 09:44 Klor-Con PO 10 meq QDAY CASANDRA Administration Pravastatin Sodium 80 mg 05/22/18 22:00 05/26/18 23:01 Pravachol PO 80 mg QHS CASANDRA Administration Sodium Chloride 10 ml 05/22/18 22:00 05/27/18 09:47 Sodium Chloride Flush Syringe 10 Ml IV 10 ml BID CASANDRA Administration Sodium Chloride 10 ml 05/22/18 12:03 Sodium Chloride Flush Syringe 10 Ml IV PRN PRN LINE FLUSH
--- NOTE | 2018-05-27 12:07 | Discharge Summary ---
Providers - Providers Date of Admission: 05/22/18 12:03 Date of discharge: 05/27/18 Attending physician: MAGDALENA CHANEL 05/22/18 11:13 Consult to Physician [CONS] Urgent Comment: Consulting Provider: DARRYN BARRERA Physician Instructions: Reason For Exam: PAD , known to your group 05/24/18 12:02 Consult to Physician [CONS] Routine Comment: Consulting Provider: FELIPE SHAH Physician Instructions: Reason For Exam: CC stay 05/25/18 14:17 Physical Therapy Evaluation and Treat [CONS] Routine Comment: Reason For Exam: placement [facility] Reason for admission: right foot pain Condition: Good Pertinent studies: Abdomen CTA Fluoroscopy CXR Procedures: Date of procedure: 05/23/2018 Pre-operative diagnosis: Acute thrombosis of the right limb of the aortobifemoral bypass graft, right femoral to peroneal artery bypass graft, with resting ischemia right foot Post-operative diagnosis: Same Procedure name(s): Right limb of the aorta bifemoral bypass graft thrombectomy with revision of the distal anastomosis using dacryon patch profundoplasty, intraoperative arteriogram lower extremity, fluoroscopically assisted thromboembolectomy right limb of the graft Hospital course: 72 YO Female with Atrial Fib on Therapeutic Anticoagulation (Eliquis), HTN, CAD S/P Stent Placement, PAD, Migraine Headache presents to ED for evaluation. Pt states that she has experienced pain and lower leg feeling cold to the tough in her right lower leg over the past 2 weeks, with progressively worsening symptoms over the past 5 days. Pt presented to her vascular surgeons office and und erwent a doppler exam and was found to have lower limb ischemia suspected due to an occlusion. Pt instructed to seek further care at [facility]. Pt seen and evaluated in ED and found to have clinical findings consistent with RLE arterial obstruction. Pt initiated on Heparin drip. Vascular surgery consulted in ED. Discharge diagnosis and management: /Acute arterial occlusion bypass graft with resting ischemia right leg s/p thrombectomy of aortobifem bypass on 05/23/18 continued anticoagulation with heparin drip, then changed to eliquis VS was following, Patient improved clinically PT recommended no home needs and to d/c with walker / HLD (hyperlipidemia) low cholesterol diet, statin therapy, / CAD in [place] artery Statin therapy, risk factor reduction, NO angina at time of admission. /Atrial fibrillation and flutter Continue rate control with metoprolol, and digoxin therpay, telemetry monitoring, continue AC with eliquis / Hypertension Monitored BP q shift, continued Beta sheryl and calcium channel sheryl therapy, / DVT prophylaxis Therapeutic anticoagulation, Physical exam - Constitutional General appearance: Present: mild distress - EENT Eyes: Present: PERRL ENT: hearing intact, clear oral mucosa - Neck Neck: Present: supple, normal ROM - Respiratory Respiratory effort: normal Respiratory: bilateral: CTA - Cardiovascular Heart Sounds: Present: S1 & S2. Absent: rub, click - Extremities Extremities: abnormal Extremity abnormal: warm, pulses present, mild tender on palpation on right foot with mild erythrema - Abdominal General gastrointestinal: Present: soft, non-tender, non-distended, normal bowel sounds Female genitourinary: Present: normal - Integumentary Integumentary: Present: clear, warm, dry - Musculoskeletal Musculoskeletal: gait normal, strength equal bilaterally - Psychiatric Psychiatric: appropriate mood/affect, intact judgment & insight - Neurologic Neurologic: CNII-XII intact, moves all extremities Disposition: TO HOME OR SELFCARE Time spent for discharge: 34 minutes Core Measure Documentation - Palliative Care Palliative Care/ Comfort Measures: Not Applicable - Core Measures Any of the following diagnoses?: none Exam - Physical Exam Narrative exam: - Constitutional General appearance: Present: mild distress - EENT Eyes: Present: PERRL ENT: hearing intact, clear oral mucosa - Neck Neck: Present: supple, normal ROM - Respiratory Respiratory effort: normal Respiratory: bilateral: CTA - Cardiovascular Heart Sounds: Present: S1 & S2. Absent: rub, click - Extremities Extremities: abnormal Extremity abnormal: warm, pulses present, mild tender on palpation Peripheral Pulses: abnormal (1+, RLE) - Abdominal General gastrointestinal: Present: soft, non-tender, non-distended, normal bowel sounds Female genitourinary: Present: normal - Integumentary Integumentary: Present: clear, warm, dry - Musculoskeletal Musculoskeletal: gait normal, strength equal bilaterally - Psychiatric Psychiatric: appropriate mood/affect, intact judgment & insight - Neurologic Neurologic: CNII-XII intact, moves all extremities - Constitutional Vitals: Temp Pulse Resp BP Pulse Ox 98.1 F 73 18 117/62 96 05/27/18 07:39 05/27/18 09:46 05/27/18 07:39 05/27/18 09:46 05/27/18 09:41 Plan Activity: advance as tolerated, fall precautions, other (walk with walker) Weight Bearing Status: Non-Weight Bearing Diet: low fat, low salt Follow up with: ROSELINE [facility] MD CHARLIE [Primary Care Provider] - 3-5 Days DARRYN BARRERA MD [Staff Physician] - 7 Days Prescriptions: HYDROcodone/APAP 5-325 [[place] 5/325 mg] 1 each PO Q6HR PRN #28 tablet PRN Reason: Pain, Moderate (4-6)
[2018-05-27 13:52] VITALS: BP 101/62
== END 2018-05-27 15:10 | disposition home or self-care (01) | DRG 252 ==
LOC: ED 10:35 → 4A 12:03 → CC1 05-23 19:46 → IMCU 05-24 20:15 → 2B-ACE 05-25 16:50
PROVIDERS: ADMIT Internal Medicine; ATTEND Internal Medicine
PROC: 04CK0ZZ Extirpation of Matter from Right Femoral Artery, Open Approach (ICD-10-PCS; principal; 2018-05-23)
PROC: 04CT0ZZ Extirpation of Matter from Right Peroneal Artery, Open Approach (ICD-10-PCS; 2018-05-23)
PROC: 04UK0JZ Supplement Right Femoral Artery with Synthetic Substitute, Open Approach (ICD-10-PCS; 2018-05-23)
PROC: B41F1ZZ Fluoroscopy of Right Lower Extremity Arteries using Low Osmolar Contrast (ICD-10-PCS; 2018-05-23)
PROC: 04HY32Z Insertion of Monitoring Device into Lower Artery, Percutaneous Approach (ICD-10-PCS; 2018-05-23)
DX: T82.868A Thrombosis due to vascular prosthetic devices, implants and grafts, initial encounter (principal); J96.01 Acute respiratory failure with hypoxia; I48.92 Unspecified atrial flutter; J98.11 Atelectasis; T82.858A Stenosis of other vascular prosthetic devices, implants and grafts, initial encounter; I48.91 Unspecified atrial fibrillation; F17.210 Nicotine dependence, cigarettes, uncomplicated; I10 Essential (primary) hypertension; I25.10 Atherosclerotic heart disease of native coronary artery without angina pectoris; Y83.2 Surgical operation with anastomosis, bypass or graft as the cause of abnormal reaction of the patient, or of later complication, without mention of misadventure at the time of the procedure; E78.2 Mixed hyperlipidemia; G43.909 Migraine, unspecified, not intractable, without status migrainosus; Z95.5 Presence of coronary angioplasty implant and graft; Z82.49 Family history of ischemic heart disease and other diseases of the circulatory system; Z79.01 Long term (current) use of anticoagulants; Z90.49 Acquired absence of other specified parts of digestive tract; Z91.048 Other nonmedicinal substance allergy status; Z71.6 Tobacco abuse counseling; Z90.710 Acquired absence of both cervix and uterus; Z86.73 Personal history of transient ischemic attack (TIA), and cerebral infarction without residual deficits; Y92.098 Other place in other non-institutional residence as the place of occurrence of the external cause
CPT/HCPCS: 36415; 36620; 71045; 75635; 80048; 80053; 80162; 82550; 83735; 85014; 85018; 85025; 85027; 85049; 85520; 85610; 85730; 86850; 86870; 86880; 86900; 86901; 86922; 88304; 88311; 94760; 99406; G0378; A9270-GY; C1757; C1768; J0690; J1170; J1644; J2250; J2270; J2370; J2704; J2720; J3010; J7040; J7050; J7120; Q9966; Q9967